=== PATIENT | female | born 1975 | race Caucasian/White ===

== ENCOUNTER 2020-05-27 09:42 | Outpatient (REF) | payer OTHER, SELFPAY ==
--- NOTE | 2020-05-27 | MM_ITS ---
EXAMINATION: MM SCREENING DIGITAL BREAST TOMOSYNTHESIS, BILATERAL CLINICAL INFORMATION: Screening. Asymptomatic. Prior benign left retroareolar biopsy 05/25/2013 (fragments of cyst wall and other benign findings). The lifetime risk of breast cancer based on the Tyrer-Cuzick Model is 17%. COMPARISON: Mammography: 11/21/2018, 06/07/2017, 05/11/2016 TECHNIQUE: Digital breast tomosynthesis is performed in both the craniocaudal and mediolateral oblique views along with computer-aided detection (CAD). Synthesized 2D images are generated from the tomosynthesis. Additional bilateral exaggerated CC views are provided. FINDINGS: The breasts are heterogeneously dense, which may obscure small masses (ACR BI-RADS breast composition Category c). Left breast has biopsy clip marker retroareolar region. There is no interval mass or architectural abnormality or developing density. There are fine calcifications anterior and anteroinferior left breast possibly increased from prior study. Patient will be recalled for additional imaging. Right breast has 0.9 cm circumscribed nodule mid outer quadrant 7 cm from nipple, likely a cyst. There is nodular asymmetry more anteriorly outer right breast, likely related to summation artifact of the inhomogeneous tissue. No abnormal calcifications. Patient will be recalled for additional imaging. MM/MM tomosynthesis screening BI IMPRESSION: 1. Left: Calcifications anterior breasts, possibly increased from prior study. 2. Right: Probable cyst mid upper outer quadrant 0.9 cm with some asymmetric tissue more anteriorly, likely summation artifact. ASSESSMENT: BI-RADS 0: Incomplete - Need Additional Imaging Evaluation RECOMMENDATION: 1. Left: Additional views of the left breast (magnification CC, magnification ML). 2. Right: Additional views upper outer right breast (3-D spot CC, 3-D spot MLO). Targeted ultrasound. 3. Radiology department staff will contact the patient for additional imaging. This patient's information was entered into a reminder system with a target due date for their next mammogram.
== END 2020-05-27 09:43 | disposition home or self-care (01) ==
LOC: HO.MAMMO 09:42
PROVIDERS: PCP Internal Medicine; Visit Provider Internal Medicine
DX: Z12.31 Encounter for screening mammogram for malignant neoplasm of breast (principal)
CPT/HCPCS: 77063; 77067

== ENCOUNTER 2020-06-24 12:30 | Outpatient (REF) | payer OTHER, SELFPAY ==
--- NOTE | 2020-06-24 12:35 | MM_ITS ---
EXAMINATION: MM DIAGNOSTIC DIGITAL BREAST TOMOSYNTHESIS, BILATERAL US DIAGNOSTIC ULTRASOUND BREAST, RIGHT CLINICAL INFORMATION: Recall from screening for calcifications anterior left breast. Recall right breast for smooth mass upper outer quadrant with adjacent asymmetric density, possibly summation artifact. TC score 14%. COMPARISON: Mammography: 05/27/2020, 11/21/2018 TECHNIQUE: Magnification views of the left breast are obtained in the CC and ML x2 projections. The right breast is imaged with digital breast tomosynthesis in spot CC and spot MLO views. 2D images are generated from the tomosynthesis. Ultrasound right breast is targeted to the upper outer quadrant. Grayscale imaging and color Doppler are performed without and with harmonics. FINDINGS: The breasts are heterogeneously dense, which may obscure small masses (ACR BI-RADS breast composition Category c). Additional magnification views left breast demonstrate a few loosely grouped fine calcifications lower outer left breast, questionably related to vascular calcification. Management plan is for short interval six-month follow-up to include magnification views. Additional views right breast show smooth mass upper outer quadrant measuring 0.9 cm. The asymmetric density anterior to the mass is no longer demonstrated suggesting summation artifact on prior imaging. Ultrasound upper outer right breast demonstrates a cyst with incompletely fine avascular internal septation and overall size 1.0 x 0.7 cm. There is no solid component. There is increased through-transmission of sound. There is no solid mass or architectural abnormality. Results are discussed with the patient at time of visit. MM/MM tomosynthesis diagnostic BI IMPRESSION: 1. Left: Probable benign loosely grouped calcifications lower outer left breast, questionably vascular. 2. Right: No persistent asymmetric density. Incidental cyst 1 cm upper outer quadrant. ASSESSMENT: BI-RADS 3: Probably Benign RECOMMENDATION: Diagnostic left mammography to include magnification views in 6 months. This patient's information was entered into a reminder system with a target due date for their next mammogram.
== END 2020-06-24 12:31 | disposition home or self-care (01) ==
LOC: HO.MAMMO 12:30
PROVIDERS: PCP Internal Medicine; Visit Provider Internal Medicine
DX: R92.1 Mammographic calcification found on diagnostic imaging of breast (principal); N64.89 Other specified disorders of breast
CPT/HCPCS: 76642; 77062; 77066

== ENCOUNTER → 2020-07-13 14:47 | Outpatient (BNVA) | payer OTHER, SELFPAY | PROVIDERS: PCP Internal Medicine; Referring Provider Internal Medicine; Visit Provider Obstetrics & Gynecology | DX: Z76.89 Persons encountering health services in other specified circumstances (principal) ==

== ENCOUNTER 2021-01-20 12:50 | Outpatient (REF) | payer OTHER, SELFPAY ==
--- NOTE | ~2021-01-20 | MM_ITS ---
EXAMINATION: MM DIAGNOSTIC DIGITAL BREAST TOMOSYNTHESIS, LEFT CLINICAL INFORMATION: Short interval six-month follow-up probable benign calcifications anterior left breast, possibly vascular. The lifetime risk of breast cancer based on the Tyrer-Cuzick Model is 13%. COMPARISON: Mammography: 06/24/2020, 05/27/2020 (BI-RADS 0), 11/21/2018 TECHNIQUE: Digital breast tomosynthesis is performed in both the craniocaudal and mediolateral oblique views along with computer-aided detection (CAD). Synthesized 2D images are generated from the tomosynthesis. Additional magnification CC and magnification ML views are obtained. FINDINGS: The breasts are heterogeneously dense, which may obscure small masses (ACR BI-RADS breast composition Category c). Breast tissue composition borders on average fibroglandular. Parenchymal pattern is similar to prior studies. There is no developing density or interval mass or architectural abnormality. Calcifications for follow-up anterior breast are stable. There is inferior anterior are possibly vascular. They will be reassessed again at time of annual bilateral mammography, due in 6 months. Results are provided to the patient at time of visit by the technologist. MM/MM tomosynthesis diagnostic LT IMPRESSION: Left breast anterior calcifications for follow-up are stable. ASSESSMENT: BI-RADS 3: Probably Benign RECOMMENDATION: Diagnostic mammography at time of annual bilateral exam, due in 6 months. This patient's information was entered into a reminder system with a target due date for their next mammogram.
== END 2021-01-20 12:51 | disposition home or self-care (01) ==
LOC: HO.MAMMO 12:50
PROVIDERS: PCP Internal Medicine; Visit Provider Internal Medicine
DX: R92.1 Mammographic calcification found on diagnostic imaging of breast (principal)
CPT/HCPCS: 77061; 77065

== ENCOUNTER 2021-06-16 11:34 | Outpatient (REF) | payer OTHER, SELFPAY ==
[2021-06-16 13:08] LABS: COVID-19 Test Negative (Negative)
== END 2021-06-16 11:35 | disposition home or self-care (01) ==
LOC: HO.LAB 11:34
PROVIDERS: Visit Provider Internal Medicine
DX: Z20.822 Contact with and (suspected) exposure to COVID-19 (principal)
CPT/HCPCS: 36415; 87635; C9803

== ENCOUNTER 2021-06-19 12:05 | Outpatient (REF) | payer OTHER, SELFPAY ==
[2021-06-19 12:47] LABS: Influenza A PCR NEGATIVE (Negative); Influenza B PCR NEGATIVE (Negative); Resp Syncy Virus RNA Qual PCR NEGATIVE (Negative); SARS COV2 PCR INHOUSE POSITIVE (Negative)
== END 2021-06-19 12:06 | disposition home or self-care (01) ==
LOC: HO.LNP 12:05
PROVIDERS: Visit Provider Physician Assistant
DX: J32.9 Chronic sinusitis, unspecified (principal); Z20.822 Contact with and (suspected) exposure to COVID-19
CPT/HCPCS: 0241U

== ENCOUNTER 2021-07-05 08:58 | Outpatient (REF) | payer OTHER, SELFPAY ==
--- NOTE | ~2021-07-05 | XR_ITS ---
EXAMINATION: XR CHEST CLINICAL INFORMATION: Covid infection COMPARISON: None TECHNIQUE: 2 views of the chest were obtained. FINDINGS: The cardiac and mediastinal contours are normal. The lungs are clear. There is no pleural effusion or pneumothorax. There are mild degenerative changes of the spine and curvature of the lower thoracic and upper lumbar spine to the left. XR/XR chest 2V IMPRESSION: No evidence for acute disease in the chest.
[2021-07-05 11:22] LABS: MANUAL DIFF FLAG NO
[2021-07-05 11:28] LABS: Basophils Percent Auto 0.4 % (0-2); Eosinophils Absolute Auto 0.1 X10*3/uL (0.0-0.4); Eosinophils Percent Auto 1.9 % (0-4); Hematocrit 42.3 % (37.0-47.0); Hemoglobin 14.1 g/dl (12.0-16.0); Imm Gran Abs Auto 0.01 X10*3/uL (0.00-0.03); Imm Gran Pct Auto 0.2 % (0.0-0.4); Lymphocytes Absolute Auto 1.6 X10*3/uL (1.2-4.9); Lymphocytes Percent Auto 34.3 % (20-40); Mean Corpuscular HGB Conc 33.3 g/dl (31.0-35.0); Mean Corpuscular Hemoglobin 30.7 pg (27.0-33.0); Mean Corpuscular Volume 92.2 fL (80.0-98.0); Monocytes Absolute Auto 0.5 X10*3/uL (0.1-1.2); Monocytes Percent Auto 11.2 % (2-11); Neutrophils Absolute Auto 2.4 x10*3/uL (2.0-8.3); Platelet Count 305 X10*3/uL (160-400); Red Blood Count 4.59 X10*6/uL (4.20-5.50); Red Cell Distribution Width 12.1 % (11.0-16.0); White Blood Count 4.7 X10*3/uL (4.8-10.8)
[2021-07-05 12:11] LABS: TSH reflex Free T4 1.62 uIU/mL (0.32-4.0); Vitamin D 25-OH Total 23.7 ng/mL (>30)
[2021-07-05 12:13] LABS: Alanine Aminotransferase 21 U/L (0-31); Anion Gap 11 (12-20); Aspartate Amino Transferase 18 U/L (5-31); Blood Urea Nitrogen 9 mg/dL (9-16); Calcium 9.3 mg/dL (8.4-10.2); Carbon Dioxide 25 mmol/L (22-29); Chloride 106 mmol/L (96-108); Cholesterol 223 mg/dL; Estimated Glomerular Filt Rate > 60; Glucose Fasting 95 mg/dL (60-99); HDL Cholesterol 48 mg/dL; LDL Cholesterol Calculated 154 mg/dl; Potassium 3.9 mmol/L (3.3-5.1); Sodium 138 mmol/L (135-145); Triglycerides 107 mg/dL
== END 2021-07-05 08:59 | disposition home or self-care (01) ==
LOC: HO.HMGCLDS 08:58
PROVIDERS: PCP Internal Medicine; Visit Provider Internal Medicine
DX: Z00.01 Encounter for general adult medical examination with abnormal findings (principal); K58.1 Irritable bowel syndrome with constipation; R05.8 Other specified cough; Z86.16 Personal history of COVID-19
CPT/HCPCS: 36415; 71046; 80048; 80061; 82306; 84443; 84450; 84460; 85025

== ENCOUNTER 2021-07-24 13:25 | Outpatient (REF) | payer OTHER, SELFPAY ==
--- NOTE | ~2021-07-24 | MM_ITS ---
EXAMINATION: MM DIAGNOSTIC DIGITAL BREAST TOMOSYNTHESIS, BILATERAL CLINICAL INFORMATION: Due for yearly. Also follow-up probable benign calcifications anterior left breast. The lifetime risk of breast cancer based on the Tyrer-Cuzick Model is 13%. COMPARISON: Mammography: 01/20/2021, 06/24/2020, 05/27/2020 (BI-RADS 0), 11/21/2018, 06/07/2017; targeted right breast ultrasound 06/24/2020. TECHNIQUE: Digital breast tomosynthesis is performed in both the craniocaudal and mediolateral oblique views along with computer-aided detection (CAD). Synthesized 2D images are generated from the tomosynthesis. Additional magnification left CC and magnification left ML views are obtained. FINDINGS: The breasts are heterogeneously dense, which may obscure small masses (ACR BI-RADS breast composition Category c). There is no interval mass or architectural abnormality. Small oval circumscribed cyst again seen right breast upper outer quadrant. There is biopsy clip marker anterior 3:00 left breast. A few fine punctate calcifications anterior left breast are stable. No increasing calcifications or pleomorphic types. They will be reassessed again at time of annual bilateral mammography, due in 12 months. The axilla and skin contours are unremarkable. Results are provided to the patient at time of visit by the technologist. MM/MM tomosynthesis diagnostic BI IMPRESSION: 1. No mammographic evidence of malignancy or significant change from prior studies. 2. Left breast calcifications for follow-up stable. ASSESSMENT: BI-RADS 3: Probably Benign RECOMMENDATION: Diagnostic mammography at time of next annual exam, due in 12 months. This patient's information was entered into a reminder system with a target due date for their next mammogram.
== END 2021-07-24 13:26 | disposition home or self-care (01) ==
LOC: HO.MAMMO 13:25
PROVIDERS: PCP Internal Medicine; Visit Provider Internal Medicine
DX: R92.1 Mammographic calcification found on diagnostic imaging of breast (principal)
CPT/HCPCS: 77062; 77066

== ENCOUNTER → 2021-09-13 08:30 | Outpatient (BNVA) | payer OTHER, SELFPAY | PROVIDERS: PCP Internal Medicine; Visit Provider Obstetrics & Gynecology | DX: Z13.89 Encounter for screening for other disorder (principal) ==

== ENCOUNTER → 2021-11-15 07:59 | Outpatient (BNVA) | payer OTHER, SELFPAY | PROVIDERS: PCP Internal Medicine; Referring Provider Internal Medicine; Visit Provider Physician Assistant | DX: Z12.11 Encounter for screening for malignant neoplasm of colon (principal); K58.1 Irritable bowel syndrome with constipation | CPT/HCPCS: 99202; 99212 ==

== ENCOUNTER 2022-03-19 09:23 | Day surgery (SDC) | payer OTHER, SELFPAY ==
--- NOTE | 2022-03-16 12:46 | HO.ANESPROP2 ---
Documented by User: Rosalie Saucedo NP 03/16/22 12:46 HPI - Anesthesia Eval Consult details Narrative: 46yo F for Colonoscopy [facility] Active Problems Active Problems: All Active Problems (Updated 12/12/21 @ 13:29 by Silvia Maxwell PA-C) Well woman exam (Acute) Encounter for screening colonoscopy (Acute) History of COVID-19 (Acute) Irritable bowel syndrome with constipation (Acute) Seasonal allergies (Acute) Past Medical History Medical History (Updated 12/12/21 @ 13:29 by Silvia Maxwell PA-C) History of COVID-19 Irritable bowel syndrome with constipation Seasonal allergies Wrist fracture, left Surgical History Surgical History (Updated 03/14/22 @ 13:30 by Jaelyn De RN) History of surgery on wrist Social History Social History Household Members: Spouse Housing: Apartment Patient Tobacco Use Status: Never used Tobacco Advance Directives: No Advance Directives Information Provided: Yes service: No Current occupational status: employed Gender identity: Female Meds Allergies Allergy/AdvReac Type Severity Reaction Status Date / Time amoxicillin [AMOXICILLIN] Allergy Unknown NAUSEA, Verified 03/19/22 09:45 nausea and vomiting Home Medications Medication Instructions Recorded Confirmed Last Taken Type fexofenadine 180 mg tablet 180 mg PO DAILY 07/05/21 03/14/22 Unknown History (Radha Allergy) magnesium 250 mg tablet 250 mg PO DAILY 07/05/21 03/14/22 Unknown History montelukast 10 mg tablet 10 mg PO DAILY 07/05/21 03/14/22 Unknown History hydrocortisone 2.5 % topical topical 11/15/21 12/12/21 Unknown History ointment Exam Exam Date and Time: March 16, 2022 1246 Assessment and Plan Assessment Anesthesia Assessment: Chart Reviewed Documented by User: Sofia Rosales MD 03/19/22 10:09 [facility] Past Medical History Medical History (Updated 12/12/21 @ 13:29 by Silvia Maxwell PA-C) History of COVID-19 Irritable bowel syndrome with constipation Seasonal allergies Wrist fracture, left Family History Family history of problems with anesthesia: No Surgical History Surgical History (Updated 03/14/22 @ 13:30 by Jaelyn De RN) History of surgery on wrist History of Problems with Anesthesia: No Social History Social History Household Members: Spouse Housing: Apartment Patient Tobacco Use Status: Never used Tobacco Advance Directives: No Advance Directives Information Provided: Yes service: No Current occupational status: employed Gender identity: Female Meds Allergies Allergy/AdvReac Type Severity Reaction Status Date / Time amoxicillin [AMOXICILLIN] Allergy Unknown NAUSEA, Verified 03/19/22 09:45 nausea and vomiting Home Medications Medication Instructions Recorded Confirmed Last Taken Type fexofenadine 180 mg tablet 180 mg PO DAILY 07/05/21 03/14/22 Unknown History (Radha Allergy) magnesium 250 mg tablet 250 mg PO DAILY 07/05/21 03/14/22 Unknown History montelukast 10 mg tablet 10 mg PO DAILY 07/05/21 03/14/22 Unknown History hydrocortisone 2.5 % topical topical 11/15/21 12/12/21 Unknown History ointment Exam Airway Mallampati Class: II TM Dist: >3cm Neck ROM: Full Heart: rrr Lungs: cta Assessment and Plan Assessment Anesthesia Assessment: Anesthesia Plan Discussed and Chart Reviewed Final Anesthetic Review Family History of Problems with Anesthesia: No History of Problems with Anesthesia: No NPO: Yes ASA Class: II Final Preanesthetic Review: No Changes in Pt Med Stat, Meds/Allgs Chart Reviewed and Consent Obtained/Reviewed Patient Risk: Intermediate Procedure Risk: Intermediate Anesthetic Plan Anesthetic Plan: MAC: Disposition: Standard PACU
[2022-03-19 09:36] VITALS: BMI 26.5
[2022-03-19 09:46] VITALS: BP 114/72; PULSE 83; RESP 15; TEMP 36.9; O2SAT 98
[2022-03-19 09:48] LABS: UPreg QC Valid YES; Urine Pregnancy NEGATIVE (NEGATIVE)
[2022-03-19] MEDS: Lactated Ringers 1,000 ML 100 ML IVCONT (09:57)
--- NOTE | 2022-03-19 10:09 | MHC.SHP ---
Pre-Procedural Eval Section A Date of Service: 03/19/22 The patient is an INPATIENT: No The History & Physical has been completed within 30 days and I have reviewed it.: No Section B Chief Complaint: screening Details of Present Illness: Colon cancer screening, IBS with constipation Relevant Social History: None Present Medications: see Short Stay Collaborative assessment Medical History: Significant History (IBS with constipation, seasonal allergies) History of Previous Operations: Relevant previous surgery/procedure and date(s) (History of surgery on wrist) Allergies: Allergies Allergy/AdvReac Type Severity Reaction Status Date / Time amoxicillin [AMOXICILLIN] Allergy Unknown NAUSEA, Verified 03/19/22 09:45 nausea and vomiting Review of Systems Sugical H&P ROS: Negative: Constitution, Cardiovascular and Respiratory and Yes, Specify: Gastrointestinal (IBS with constipation) Exam Surgical H&P Exam: Normal: Heart, Normal: Lungs, Normal: Extremities and Normal: Abdomen Plan Diagnosis/Plan: Unchanged I have reviewed the history and physical and performed a pertinent physical examination on my patient. No changes have occurred unless specified.
--- NOTE | 2022-03-19 10:16 | PM.OP ---
Brief Operative Note Date of Service: 03/19/22 Pre-op diagnosis: Colon cancer screening, IBS with constipation Post-op diagnosis: other (Colon polyp, hemorrhoids) Procedure: COLONOSCOPY TILL CECUM WITH BIOPSIES Consent: Indications for the procedure and potential complications of bleeding, perforation, reaction to medications and missed diagnosis were discussed with the patient and informed consent was obtained. Instrument: Olympus PCF H 190 L variable stiffness pediatric colonoscope Monitoring: Vital signs and clinical assessment, intermittent blood pressure monitoring, continuous EKG monitoring, Pulse oximetry and Carbon Dioxide monitoring were done throughout the procedure. Colon withdrawl time was 18 minutes. Procedure: The patient was placed in the left lateral decubitis position and pre-procedure medications were administered. After a digital rectal examination of the ano-rectum, the video colonoscope was inserted into the rectum and advanced through the colon to the cecum. The colonoscope was slowly withdrawn in a retrograde panoramic fashion and the colon mucosa was carefully examined including a retroflexed view of the rectum. Findings and interventions are described below. Procedure Difficulty: Without difficulty Findings: Terminal Ileum: Not evaluated Cecum: Normal Ascending Colon: Normal Transverse Colon: Normal Descending Colon: Normal Sigmoid Colon: A 3-4 mm diminutive appearing polyp removed with a cold bx Rectum: Normal Ano-rectum: Small internal hemorrhoids Colon preparation: Good Impression and Post Procedure Diagnosis: Colonoscopy Findings: One small diminutive appear polyp removed Small hemorrhoids on retroflexed exam. Plan: Await pathology results Patient has an appointment on 04/02/22 in the GI Clinic with ROSE MARY Schaeffer. Repeat Colonoscopy interval based on path results - in 5 years if polyps are adenomatous and 10 years if polyps are hyperplastic. Above findings were reviewed with the patient and colon polyps handout was given in the discharge area Surgeon: Beck Matias MD Anesthesia: MAC Was an Bilingual Nanny used for this Procedure?: Yes Bilingual Nanny: Kalyan Roth Estimated blood loss (mL): 0 Pathology: other (A: SIGMOID BX R/O POLYP) Condition: stable Disposition: PACU
[2022-03-19 10:47] VITALS: BP 130/84; PULSE 86; RESP 16; TEMP 36.2; O2SAT 99
--- NOTE | 2022-03-19 10:50 | P.OP_ITS ---
Operative Note Operative Note Date of Service: 03/19/22 Narrative: Pre-op diagnosis: Colon cancer screening, IBS with constipation Post-op diagnosis:?other (Colon polyp, hemorrhoids) Procedure: COLONOSCOPY TILL CECUM WITH BIOPSIES Consent: Indications for the procedure and potential complications of bleeding, perforation, reaction to medications and missed diagnosis were discussed with the patient and informed consent was obtained. Instrument: Olympus PCF H 190 L variable stiffness pediatric colonoscope Monitoring: Vital signs and clinical assessment, intermittent blood pressure monitoring, continuous EKG monitoring, Pulse oximetry and Carbon Dioxide monitoring were done throughout the procedure. Colon withdrawl time was 18 minutes. Procedure: The patient was placed in the left lateral decubitis position and pre-procedure medications were administered. After a digital rectal examination of the ano-rectum, the video colonoscope was inserted into the rectum and advanced through the colon to the cecum. The colonoscope was slowly withdrawn in a retrograde panoramic fashion and the colon mucosa was carefully examined including a retroflexed view of the rectum. Findings and interventions are described below. Procedure Difficulty: Without difficulty Findings: Terminal Ileum: Not evaluated Cecum:? Normal Ascending Colon:? Normal Transverse Colon:? Normal Descending Colon:? Normal Sigmoid Colon:? A 3-4 mm diminutive appearing polyp removed with a cold bx Rectum:? Normal Ano-rectum:? Small internal hemorrhoids Colon preparation:? Good? Impression and Post Procedure Diagnosis: Colonoscopy Findings: One small diminutive appear polyp removed Small hemorrhoids on retroflexed exam. Plan: Await pathology results Patient has an appointment on 04/02/22 in the GI Clinic with ROSE MARY Schaeffer. Repeat Colonoscopy interval based on path results - in 5 years if polyps are adenomatous and 10 years if polyps are hyperplastic. Above findings were reviewed with the patient and colon polyps handout was given in the discharge area Surgeon: Beck Matias MD Anesthesia:?MAC Was an Software Licensing Specialist used for this Procedure?:?Yes Software Licensing Specialist:?Kalyan Roth Estimated blood loss (mL):?0 Pathology:?other (A: SIGMOID BX R/O POLYP) Condition:?stable Disposition:?PACU
[2022-03-19 11:02] VITALS: BP 128/84; PULSE 88; RESP 18; TEMP 36.2; O2SAT 100
== END 2022-03-19 12:00 | disposition home or self-care (01) ==
PROVIDERS: Nurse Practitioner; PCP Internal Medicine; Visit Provider Internal Medicine Gastroenterology
PROC: 0DJD8ZZ Inspection of Lower Intestinal Tract, Via Natural or Artificial Opening Endoscopic (ICD-10-PCS; CPT 45378; principal; 2022-03-19 11:50)
DX: Z12.11 Encounter for screening for malignant neoplasm of colon (principal); K63.5 Polyp of colon; K57.30 Diverticulosis of large intestine without perforation or abscess without bleeding; K64.8 Other hemorrhoids; K58.1 Irritable bowel syndrome with constipation; Z79.899 Other long term (current) drug therapy; Z88.1 Allergy status to other antibiotic agents; Z86.16 Personal history of COVID-19
CPT/HCPCS: 45380; 81025; 88305

== ENCOUNTER 2022-06-26 07:58 | Outpatient (REF) | payer OTHER, SELFPAY ==
[2022-06-27 10:00] LABS: BV Int Neg Control Negative (Negative); BV Int Pos Control Positive (Positive)
[2022-06-27 16:57] LABS: HPV mRNA E6/E7 rflx Not Detected (Not Detected)
== END 2022-06-26 07:59 | disposition home or self-care (01) ==
LOC: HO.LNP 07:58
PROVIDERS: PCP Internal Medicine; Visit Provider Obstetrics & Gynecology
DX: R31.29 Other microscopic hematuria (principal); N93.9 Abnormal uterine and vaginal bleeding, unspecified; N39.41 Urge incontinence; N92.6 Irregular menstruation, unspecified; R23.2 Flushing; N81.4 Uterovaginal prolapse, unspecified
CPT/HCPCS: 87086; 87480; 87510; 87624; 87660; 88142; 99212

== ENCOUNTER 2022-06-27 09:04 | Outpatient (REF) | payer OTHER, SELFPAY ==
[2022-06-27 11:53] LABS: Hematocrit 45.5 % (37.0-47.0); Hemoglobin 15.2 g/dl (12.0-16.0); Mean Corpuscular HGB Conc 33.4 g/dl (31.0-35.0); Mean Corpuscular Volume 92.7 fL (80.0-98.0); Mean Platelet Volume 11.9 fL (9.4-12.3); Platelet Count 280 X10*3/uL (160-400); Red Blood Count 4.91 X10*6/uL (4.20-5.50); Red Cell Distribution Width 12.1 % (11.0-16.0); White Blood Count 4.8 X10*3/uL (4.8-10.8)
[2022-06-27 12:36] LABS: HCG Quantitative < 2 mIU/mL; TSH reflex Free T4 1.68 uIU/mL (0.32-4.0)
[2022-06-28 21:52] LABS: Lutenizing Hormone 15.1 mIU/mL
== END 2022-06-27 09:05 | disposition home or self-care (01) ==
LOC: HO.HMGCLDS 09:04
PROVIDERS: PCP Internal Medicine; Visit Provider Obstetrics & Gynecology
DX: N93.9 Abnormal uterine and vaginal bleeding, unspecified (principal)
CPT/HCPCS: 36415; 83001; 83002; 84443; 84702; 85027

== ENCOUNTER 2022-07-04 13:34 | Outpatient (REF) | payer OTHER, SELFPAY ==
--- NOTE | ~2022-07-04 | US_ITS ---
EXAMINATION: US PELVIS CLINICAL INFORMATION: Abnormal uterine bleeding COMPARISON: Pelvic ultrasound 10/28/2019 TECHNIQUE: Transabdominal and endovaginal imaging was performed. FINDINGS: The uterus is of normal size and echogenicity measuring 8.4 x 4.6 x 6.2 cm. A regular homogeneous endometrium is identified measuring 1.0 cm. A 1.3 cm subserosal myoma, in the anterior body. Nabothian cysts in the cervix. Both ovaries are of normal size and echogenicity. The right measures 2.2 x 1.7 x 2.4 cm for a volume of 4.5 mL. The left measures 2.1 x 1.9 x 2.1 cm for a volume of 4.3 mL. Physiologic involuting left hemorrhagic corpus luteum. There is no pelvic free fluid. US/US pelvic and transvaginal IMPRESSION: The endometrium measures 1 cm in thickness which is within normal limits. A 1.3 cm subserosal myoma in the anterior body of the uterus, new from prior.
== END 2022-07-04 13:35 | disposition home or self-care (01) ==
LOC: HO.HMGCX 13:34
PROVIDERS: PCP Internal Medicine; Visit Provider Obstetrics & Gynecology
DX: N93.9 Abnormal uterine and vaginal bleeding, unspecified (principal)
CPT/HCPCS: 76830; 76856

== ENCOUNTER 2022-07-11 08:28 | Outpatient (REF) | payer OTHER, SELFPAY | END 2022-07-11 08:29 | disposition home or self-care (01) | LOC: HO.LNP 08:28 | PROVIDERS: PCP Internal Medicine; Visit Provider Obstetrics & Gynecology | DX: N93.9 Abnormal uterine and vaginal bleeding, unspecified (principal); R31.29 Other microscopic hematuria | CPT/HCPCS: 58100; 88305; 99212 ==

== ENCOUNTER → 2022-07-23 08:17 | Outpatient (BNVA) | payer OTHER, SELFPAY | PROVIDERS: PCP Internal Medicine; Visit Provider Obstetrics & Gynecology | DX: N93.9 Abnormal uterine and vaginal bleeding, unspecified (principal); D21.9 Benign neoplasm of connective and other soft tissue, unspecified | CPT/HCPCS: 99212 ==

== ENCOUNTER 2022-07-25 13:25 | Outpatient (REF) | payer OTHER, SELFPAY ==
--- NOTE | ~2022-07-25 | MM_ITS ---
EXAMINATION: MM DIAGNOSTIC DIGITAL BREAST TOMOSYNTHESIS, LEFT CLINICAL INFORMATION: Bilateral screening mammography and diagnostic left breast study with magnification views for calcifications. The lifetime risk of breast cancer based on the Tyrer-Cuzick Model is 13.3%. COMPARISON: Mammography: 07/24/2021 and studies dating back to 12/04/2013. TECHNIQUE: Digital breast tomosynthesis is performed in both the craniocaudal and mediolateral oblique views along with computer-aided detection (CAD). Synthesized 2D images are generated from the tomosynthesis. Additional spot magnification views of the left breast in craniocaudal and 90-degree mediolateral views performed. FINDINGS: The breasts are heterogeneously dense, which may obscure small masses (ACR BI-RADS breast composition Category c). No new abnormal dominant mass or more suspicious grouping of microcalcifications is identified. No aggressive change within the left breast calcifications inferior aspect. Recommend return to routine screening mammography. Results are provided to the patient at time of visit by the technologist. MM/MM tomosynthesis diagnostic BI IMPRESSION: There are no significant changes from prior study. ASSESSMENT: BI-RADS 2: Benign. RECOMMENDATION: Routine annual mammography screening. This patient's information was entered into a reminder system with a target due date for their next mammogram.
== END 2022-07-25 13:26 | disposition home or self-care (01) ==
LOC: HO.MAMMO 13:25
PROVIDERS: PCP Internal Medicine; Visit Provider Internal Medicine
DX: R92.1 Mammographic calcification found on diagnostic imaging of breast (principal)
CPT/HCPCS: 77062; 77066

== ENCOUNTER 2022-11-14 07:50 | Outpatient (AMB) | payer OTHER, SELFPAY ==
--- NOTE | 2022-11-14 08:00 | MHC.PC.OV ---
Vital Signs 11/14/22 08:01 Height 5 ft 8.5 in Weight 183 lb BMI 27.4 BP 122/70 Blood Pressure Location Rt brachial Position Sitting Pulse 69 Pulse Source Pulse Oximeter Pulse Oximetry (%) 97 Oxygen Delivery Method Room Air Intake Visit Reasons: ANNUAL PE Intake Note: Pt is here today for her PE Is last menstrual period known: Yes Last menstrual period: 11/03/22 Allergies amoxicillin [AMOXICILLIN] Allergy (Unknown, Verified 02/15/23 10:53) NAUSEA, nausea and vomiting Medication List - Last Reconciled 11/14/22 by Naz Martinez MD fexofenadine ([facility]) 180 mg PO DAILY hydrocortisone 2.5% topical magnesium 250 mg PO DAILY Tobacco use date assessed: 11/14/22 HPI ANNUAL PE HPI Details 46-year-old lady here today for physical exam. She is up-to-date with her screening colonoscopy, goes to Dr. Mckeon for routine Pap and pelvic exam, and is up-to-date with her mammogram. She is currently being followed for mild cystocele and uterine prolapse by her OBGYN. 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 Currently being followed by GI clinic for her IBS with constipation, maintain and high-fiber diet. Goes to Dr. Richardson for skin cancer screening. She has history of vitamin-D deficiency currently not taking any vitamin-D supplements at present time, and has mild elevation in her LDL cholesterol on last year's check.. Currently being seen by an emotionally impaired teacher for seasonal allergic rhinitis, currently on Astelin nasal spray but has stopped getting immunotherapy, was not working per patient. Goes to [facility] for her routine eye exam, has myopia. Has had 2 COVID vaccine but does not want to get the booster nor does she want to get flu shots, currently up-to-date with her Tdap.. [facility] Medical History Vitamin D deficiency History of COVID-19 Irritable bowel syndrome with constipation Wrist fracture, left Seasonal allergies Surgical History History of surgery on wrist Social History Household Members: Spouse Housing: Apartment Patient Tobacco Use Status: Never used Tobacco e-Cigarette/Vaping Use: Never Used service: No Current occupational status: employed Gender identity: Female Cognitive needs: No Hearing needs: No Vision needs: Yes Female Reproductive History Menstrual Age of Menarche: 11 Date of last menstrual period: 11/03/22 Questionnaire PHQ-9 Over the last 2 weeks, how often have you been bothered by any of the following problems? 1. Little interest or pleasure in doing things: several days 2. Feeling down, depressed, or hopeless: several days 3. Trouble falling or staying asleep, or sleeping too much: not at all 4. Feeling tired or having little energy: more than half the days 5. Poor appetite or overeating: not at all 6. Feeling bad about yourself - or that you are a failure or have let yourself or your family down: several days 7. Trouble concentrating on things, such as reading the newspaper or watching television: not at all 8. Moving or speaking so slowly that other people could have noticed. Or the opposite - being so fidgety or restless that you have been moving around a lot more than usual: not at all 9. Thoughts that you would be better off or of hurting yourself in some way: not at all Total score: 5 Depression Screening Interpretation: Negative (Patient starting perimenopause attributes all above to it, not depressed) 02035 - PHQ-9 Billing: Yes Source: Developed by Drs. Patrick Moody, Abby Reyes, Gibson Peck and colleagues, with an educational deepti from [employer]. Thrive Questionnaire Date Thrive assessed: 11/14/22 I am a: Patient What is your living situation today?: I have a steady place to live Within the past 12 months, did the food you bought not last and you didn't have the money to get more?: Never true Within the past 12 months, did you worry whether your food would run out before you got money to buy more?: Never true Do you have trouble paying for medicines?: No Do you have trouble getting transportation to medical appointments?: No Do you have trouble paying your heating and electricity bill?: No Do you have trouble taking care of your child, family member or friend?: No Do you have trouble with day-to-day activities such as bathing, preparing meals, shopping, managing finances, etc.?: No Are you currently unemployed and looking for a job?: No Are you interested in more education?: No AUDIT C Alcohol Use Questionnaire (AUDIT-C) 1. How often do you have a drink containing alcohol?: Never Total Score: 0 GARY-7 AMB Questionnaire GARY-7 Date GARY - 7 assessed: 11/14/22 Feeling nervous, anxious, or on edge: 0 = Not at all Not being able to stop or control worryin = Not at all Worrying too much about different things: 0 = Not at all Trouble relaxin = Not at all Being so restless that it is hard to sit still: 0 = Not at all Becoming easily annoyed or irritable: 1 = Several days Feeling afraid as if something awful might happen: 0 = Not at all Total GARY-7 score (0-4 normal; 5-9 mild; 10-14 moderate; 15-21 severe): 1 Source: Developed by Drs. Patrick Moody, Abby Reyes, Gibson Peck and colleagues, with an educational deepti from [employer]. GARY-7 Assessment Billing GARY-7 Assessment Tool: GARY-7 Assessment 98968 Review of Systems Const Denies body aches, Denies fatigue and Denies headache(s) Eyes Details: Gets routine eye exam from [facility] Denies change in vision and Denies itchy eyes ENT Reports Normal hearing present and Denies headache(s) Card Denies chest pain, Denies lightheadedness, Denies palpitations and Denies dyspnea Resp Denies chest congestion, Denies cough, Denies dyspnea and Denies wheezing GI Denies abdominal pain, Denies change in bowel habits and Denies heartburn Denies urinary frequency, Denies dysuria and Denies urinary urgency Musc Reports no additional complaints Skin/Breast Denies lesions and Denies rash Neuro Reports Normal hearing present, Denies headache(s) and Denies Sensory deficit (Neuro) Psych Reports no additional complaints Endo Denies fatigue, Denies polydipsia, Denies polyuria and Denies palpitations Mohan/Lymph Denies easy bruising Aller/Immun Denies itchy eyes, Denies seasonal rhinorrhea and Denies wheezing Physical exam (Primary Care) Vital Signs: Last Vital Signs Pulse 69 11/14/22 08:01 BP 122/70 11/14/22 08:01 Pulse Ox 97 11/14/22 08:01 Oxygen Delivery Method Room Air 11/14/22 08:01 BMI result Body Mass Index 27.4 Tobacco/Smoking Status: Tobacco use Status Tobacco use date assessed 11/14/22 11/14/22 08:03 Patient Tobacco Use Status Never used Tobacco 11/14/22 08:00 e-Cigarette/Vaping Use Never Used 11/14/22 08:03 PHQ-9: PHQ-9 Score PHQ-9: Total score 5 11/14/22 08:57 Depression Screening Interpretation: Negative (Patient starting perimenopause attributes all above to it, not depressed) Thrive Assessment: Date of Thrive Assessment Date Thrive assessed 11/14/22 11/14/22 08:11 Const General: cooperative, healthy appearing, no acute distress and alert Orientation/consciousness: patient oriented x3 HENMT Head: Yes normocephalic and Yes atraumatic Ears: external ears normal, TM's normal bilaterally and EAC's normal General nose exam: Normal external nose present and No nasal discharge present Face and sinus: Yes normal facial exam, Yes sinuses nontender and Yes face symmetric Mouth: Normal oral and palatal mucosa present and moist mucous membranes Eyes Conjunctivae: conjunctivae normal Sclerae: sclerae normal Pupils: Equal, round and reactive pupils present EOM: EOMs intact bilaterally Neck Neck: Yes full ROM and Yes no lymphadenopathy Thyroid: Thyroid normal Chest Chest palpation & inspection: normal inspection of the chest Breast/axilla palpation: normal palpation of the breasts Resp Effort & Inspection: normal respiratory effort and able to speak in complete sentences Auscultation: clear to auscultation bilaterally Cardio Jugular venous distension: no JVD Rate: regular rate Rhythm: regular rhythm Heart sounds: S1 normal heart sound present and S2 normal heart sound present GI Inspection: Yes normal to inspection Palpation (GI): Soft to palpation, nontender, no guarding and no masses Auscultation: normal bowel sounds Back/Spine/Pelvis Back: No back tenderness Skin General skin exam: no rashes or lesions noted Neuro General: patient oriented x3, gait normal, moves all extremities, no focal motor deficits and CN's II-XI intact bilaterally Cranial nerves: Yes Equal, round and reactive pupils present and Yes Normal hearing present Cognition (Neuro): normal cognition Gait exam (Neuro): Normal gait present Motor exam (neuro): 5/5 motor strength present throughout Sensory Exam: No Sensory deficit (Neuro) Extrem General: Yes normal to inspection, Yes full ROM, Yes no pedal edema and Yes normal gait Psych Appearance: grossly normal and well kempt Mental Status: mental status grossly normal Speech and movement: Normal speech and movement present Affect: normal affect Attitude: cooperative Thought process: Normal thought process present Thought content: Normal thought content present Assessment and Plan Assessment & Plan (1) Annual visit for general adult medical examination with abnormal findings: Code(s): Z00. - Encounter for general adult medical examination with abnormal findings Plan: Will check appropriate labs. Continue dental visit every 6 months and regular eye exams, at least every 2 years. Take adequate calcium in diet and vitamin-D 3 at 2000 IU per cap once a day, in addition to weight-bearing exercises to help maintain good muscle tone and weight control. Instructed to do self-breast exam, and get yearly mammogram, currently sees [facility] for her routine Pap and pelvic exam. Up-to-date with her screening colonoscopy. Has had 2 COVID vaccines but does not want to get the booster nor does she want to get flu vaccine, up-to-date with Tdap (2) Irritable bowel syndrome with constipation: Code(s): K58.1 - Irritable bowel syndrome with constipation Plan: Followed by GI clinic, maintained on a high-fiber diet (3) Seasonal allergies: Code(s): J30.2 - Other seasonal allergic rhinitis Plan: Currently taking fexofenadine 180 mg once a day as needed (4) Perimenopause: Code(s): N95.1 - Menopausal and female climacteric states Plan: Followed by OBGYN Orders: Orders Alanine Aminotransferase 11/14/22 K58.1 - Irritable bowel syndrome with constipation, J30.2 - Other seasonal allergic rhinitis, Z00. - Encounter for general adult medical examination with abnormal findings, N95.1 - Menopausal and female climacteric states, E55.9 - Vitamin D deficiency, unspecified Aspartate Amino Transferase 11/14/22 K58.1 - Irritable bowel syndrome with constipation, J30.2 - Other seasonal allergic rhinitis, Z00.01 - Encounter for general adult medical examination with abnormal findings, N95.1 - Menopausal and female climacteric states, E55.9 - Vitamin D deficiency, unspecified Basic Metabolic Panel Fasting 11/14/22 K58.1 - Irritable bowel syndrome with constipation, J30.2 - Other seasonal allergic rhinitis, Z00.01 - Encounter for general adult medical examination with abnormal findings, N95.1 - Menopausal and female climacteric states, E55.9 - Vitamin D deficiency, unspecified Vitamin D 25-OH Total 11/14/22 K58.1 - Irritable bowel syndrome with constipation, J30.2 - Other seasonal allergic rhinitis, Z00.01 - Encounter for general adult medical examination with abnormal findings, N95.1 - Menopausal and female climacteric states, E55.9 - Vitamin D deficiency, unspecified Lipid Panel 11/14/22 K58.1 - Irritable bowel syndrome with constipation, J30.2 - Other seasonal allergic rhinitis, Z00.01 - Encounter for general adult medical examination with abnormal findings, N95.1 - Menopausal and female climacteric states, E55.9 - Vitamin D deficiency, unspecified TSH reflex Free T4 11/14/22 K58.1 - Irritable bowel syndrome with constipation, J30.2 - Other seasonal allergic rhinitis, Z00.01 - Encounter for general adult medical examination with abnormal findings, N95.1 - Menopausal and female climacteric states, E55.9 - Vitamin D deficiency, unspecified Coding Level of Care Code Est Pt Prev Care 40-64y(65570) Diagnoses Annual visit for general adult medical examination with abnormal findings Z00.01 Irritable bowel syndrome with constipation K58.1 Seasonal allergies J30.2 Perimenopause N95.1 Additional Codes GARY-7 Assessment Billing - GARY-7 Assessment Tool: GARY-7 Assessment [id number] ([id number])
[2022-11-14 08:01] VITALS: BP 122/70; PULSE 69; O2SAT 97; BMI 27.4
== END 2022-11-14 09:24 | disposition home or self-care (01) ==
LOC: HO.HMGC 07:50
PROVIDERS: PCP Internal Medicine; Visit Provider Internal Medicine
DX: Z00.01 Encounter for general adult medical examination with abnormal findings (principal); K58.1 Irritable bowel syndrome with constipation; J30.2 Other seasonal allergic rhinitis; N95.1 Menopausal and female climacteric states
CPT/HCPCS: 99499

== ENCOUNTER 2022-11-14 08:54 | Outpatient (REF) | payer OTHER, SELFPAY ==
[2022-11-14 11:49] LABS: Alanine Aminotransferase 14 U/L (0-31); Anion Gap 12 (12-20); Aspartate Amino Transferase 16 U/L (5-31); Blood Urea Nitrogen 12 mg/dL (9-16); Calcium 9.7 mg/dL (8.4-10.2); Carbon Dioxide 25 mmol/L (22-29); Chloride 106 mmol/L (96-108); Cholesterol 214 mg/dL; Estimated Glomerular Filt Rate > 60; Glucose Fasting 95 mg/dL (60-99); HDL Cholesterol 45 mg/dL; LDL Cholesterol Calculated 148 mg/dl; Potassium 4.1 mmol/L (3.3-5.1); Sodium 139 mmol/L (135-145); Triglycerides 108 mg/dL
[2022-11-14 12:08] LABS: TSH reflex Free T4 1.89 uIU/mL (0.32-4.0); Vitamin D 25-OH Total 29.1 ng/mL (>30)
== END 2022-11-14 08:55 | disposition home or self-care (01) ==
LOC: HO.HMGCLDS 08:54
PROVIDERS: PCP Internal Medicine; Visit Provider Internal Medicine
DX: Z00.01 Encounter for general adult medical examination with abnormal findings (principal); E55.9 Vitamin D deficiency, unspecified; J30.2 Other seasonal allergic rhinitis; K58.1 Irritable bowel syndrome with constipation; N95.1 Menopausal and female climacteric states
CPT/HCPCS: 36415; 80048; 80061; 82306; 84443; 84450; 84460

== ENCOUNTER 2023-02-15 09:29 | Outpatient (AMB) | payer OTHER, SELFPAY ==
--- NOTE | 2023-02-15 10:17 | AM.OFFWIN_ITS ---
Intake Vital Signs 02/15/23 10:22 Weight 185 lb BP 110/68 Blood Pressure Location Rt brachial Position Sitting Pulse 1 L Pulse Source Pulse Oximeter Temp 97.6 F Temp Source Temporal Artery Scan Pulse Oximetry (%) 97 Oxygen Delivery Method Room Air Intake Visit Reasons: EP, cough, chest congestion ([phone]) Intake Note: Patient here because she had covid about 1 month ago and still expericiening chest congestion, cough and fatigued. Patient Tobacco Use Status: Never used Tobacco Allergies amoxicillin [AMOXICILLIN] Allergy (Unknown, Verified 02/15/23 10:53) NAUSEA, nausea and vomiting Medication List - Last Reconciled 02/15/23 by Konrad Guerin MD fexofenadine ([facility]) 180 mg PO DAILY hydrocortisone 2.5% topical magnesium 250 mg PO DAILY Do you need a note to return to daycare/school/sports/work: No HPI EP, cough, chest congestion ([phone]) HPI Details 47-year-old female presents to the office for a sick visit. Patient tested positive for COVID on January. Subsequently she has been having symptoms of shortness of breath and wheezing. Feeling tired and fatigued. [facility] Medical History History of COVID-19 Irritable bowel syndrome with constipation Seasonal allergies Vitamin D deficiency Wrist fracture, left Surgical History History of surgery on wrist Social History Household Members: Spouse Housing: Apartment Patient Tobacco Use Status: Never used Tobacco e-Cigarette/Vaping Use: Never Used service: No Current occupational status: employed Gender identity: Female Cognitive needs: No Hearing needs: No Vision needs: Yes Female Reproductive History Menstrual Age of Menarche: 11 Physical Exam Vital Signs: Last Vital Signs Temp 97.6 F 02/15/23 10:22 Pulse 1 L 02/15/23 10:22 BP 110/68 02/15/23 10:22 Pulse Ox 97 02/15/23 10:22 Oxygen Delivery Method Room Air 02/15/23 10:22 Const General: cooperative and healthy appearing Nutritional Appearance: well nourished Orientation/consciousness: patient oriented x3 Limitations: no limitations HEENT Head: Yes normal to inspection Eyes General: appearance normal, both eyes and all related structures Neck Neck: Yes normal visual inspection Chest Chest palpation & inspection: normal palpation of entire chest wall Resp Other: Scattered wheeze bilaterally Effort & Inspection: normal respiratory effort Neuro General: patient oriented x3 Assessment & Plan Assessment & Plan (1) Upper respiratory tract infection: Code(s): J06.9 - Acute upper respiratory infection, unspecified Plan: No antibiotics called in. Prednisone and albuterol called in. Coding Level of Care Code Est Pt Level 3 (06073) Diagnoses Upper respiratory tract infection J06.9
[2023-02-15 10:22] VITALS: BP 110/68; PULSE 1; TEMP 36.4; O2SAT 97
== END 2023-02-15 11:20 | disposition home or self-care (01) ==
PROVIDERS: PCP Internal Medicine; Visit Provider Internal Medicine
DX: J06.9 Acute upper respiratory infection, unspecified (principal)
CPT/HCPCS: 99213

== ENCOUNTER 2023-07-29 13:01 | Outpatient (REF) | payer OTHER, SELFPAY ==
--- NOTE | ~2023-07-29 | MM_ITS ---
EXAMINATION: MM SCREENING DIGITAL BREAST TOMOSYNTHESIS, BILATERAL CLINICAL INFORMATION: Screening. Asymptomatic. COMPARISON: Mammography: This study is compared with prior exams dating back to 2019. TECHNIQUE: Digital breast tomosynthesis is performed in both the craniocaudal and mediolateral oblique views along with computer-aided detection (CAD). Synthesized 2D images are generated from the tomosynthesis. FINDINGS: The breasts are heterogeneously dense, which may obscure small masses (ACR BI-RADS breast composition Category c). In the deep third of the upper outer quadrant of the right breast, there is a focal asymmetry which warrants additional mammographic and targeted sonographic evaluation. In the same location, faint apparent calcifications warrant additional mammographic imaging with magnification. In the left breast, there are no significant masses, abnormal calcifications, or other abnormalities. MM/MM tomosynthesis screening BI IMPRESSION: Focal asymmetry of the right breast warrants additional mammographic and targeted sonographic evaluation. In the same location, calcifications also warrant additional mammographic imaging with magnification. No mammographic signs of malignancy left breast. ASSESSMENT: BI-RADS BI-RADS 0 - Incomplete: Needs additional Imaging. RECOMMENDATION: 1. Additional views of the right breast. 2. Targeted ultrasound if warranted after review of the additional views. 3. Radiology department staff will contact the patient for additional imaging. Additional Imaging required This examination should not preclude the clinical evaluation of a suspicious palpable abnormality. This patient's information was entered into a reminder system with a target due date for their next mammogram.
== END 2023-07-29 13:02 | disposition home or self-care (01) ==
LOC: HO.MAMMO 13:01
PROVIDERS: PCP Internal Medicine; Visit Provider Internal Medicine
DX: Z12.31 Encounter for screening mammogram for malignant neoplasm of breast (principal)
CPT/HCPCS: 77063; 77067

== ENCOUNTER → 2023-07-29 13:15 | Outpatient (BNV) | payer OTHER, SELFPAY | PROVIDERS: PCP Internal Medicine; Visit Provider Radiology Diagnostic Radiology | DX: Z12.31 Encounter for screening mammogram for malignant neoplasm of breast (principal) | CPT/HCPCS: 77063; 77067 ==

== ENCOUNTER 2023-09-13 14:22 | Outpatient (REF) | payer OTHER, SELFPAY ==
--- NOTE | ~2023-09-13 | US_ITS ---
EXAMINATION: MM DIAGNOSTIC DIGITAL BREAST TOMOSYNTHESIS, RIGHT US BREAST LIMITED, RIGHT MAMMOGRAPHY: CLINICAL INFORMATION: Callback for follow-up of focal large parenchymal asymmetry upper outer quadrant right breast, and evaluate possible faint associated calcifications in this asymmetry. COMPARISON: Mammography: 07/29/2023 (BI-RADS 0), 07/25/2022, 07/24/2021, 01/20/2021, 06/24/2020, 05/27/2020, and 11/21/2018. Ultrasound: Right 06/24/2020. TECHNIQUE: Digital breast tomosynthesis is performed in the following views: Full-field right 3-D mediolateral view, 3-D spot compression right CC and MLO views, and 2-D spot magnification right CC and ML views. Computer-aided diagnosis was used for this study. FINDINGS: There are scattered areas of fibroglandular density (ACR BI-RADS breast composition Category b). Spot magnification views of the upper outer right breast demonstrate scattered barely perceptible parenchymal punctate calcifications without evidence of suspicious grouping or pleomorphism. These are benign. No follow-up required. Spot compression and ML views of the upper outer right breast demonstrate stable dense parenchymal focal asymmetry, unchanged from numerous prior examinations. This region was previously evaluated 06/24/2020 with mammography and ultrasound. There has been no significant change. There is no suspicious mass or focus of architectural distortion. There is a circumscribed mass measuring 1.1 x 0.9 cm in the anterior aspect of this upper outer parenchymal asymmetry. This is known to represent a septated cyst. There is an abutting 3 mm circumscribed mass anterior to this. We will evaluate this region again with ultrasound. Otherwise, tomographic imaging of the right breast demonstrates smaller oval and rounded circumscribed isodense masses consistent with fibrocystic breast parenchyma. These are largely unchanged from prior exams. ULTRASOUND: CLINICAL INFORMATION: Evaluate circumscribed mass right breast upper outer quadrant 11-12 o'clock axis measuring 1.1 x 0.9 cm. COMPARISON: 06/24/2020 right breast ultrasound. TECHNIQUE: Targeted sonographic evaluation right breast was performed using a high frequency linear transducer. Attention was focused on the 10:00 through 12:00 axis. Selected archived documentation. FINDINGS: RIGHT BREAST: There is dense fibrocystic breast parenchyma present. At the 11-12 o'clock axis, 6 cm from the nipple, there is a partially thinly septated otherwise simple cyst measuring 1.1 x 0.9 x 1.2 cm, with a smaller immediately abutting more anterior 3 mm simple cyst. These findings are stable allowing for differences in measurement technique. No suspicious features. There is no solid mass or architectural abnormality identified. US/US breast RT limited mamm only IMPRESSION: -No significant changes from prior studies in the right breast. Stable prominent fibrocystic parenchyma upper outer right breast, benign. -Stable partially septated cyst measuring up to 1.2 cm upper outer quadrant right breast nearing 12:00 axis. -No suspicious grouped calcifications identified in the right breast. Recommend this patient return to routine annual screening to include both breasts. OVERALL ASSESSMENT: Mammography: BI-RADS 2 - Benign Findings Ultrasound: BI-RADS 2 - Benign Findings RECOMMENDATION: 1 year F/U Results were provided to the patient at time of visit by the technologist. This patient's information was entered into a reminder system with a target due date for their next mammogram.
== END 2023-09-13 14:23 | disposition home or self-care (01) ==
LOC: HO.MAMMO 14:22
PROVIDERS: PCP Internal Medicine; Visit Provider Internal Medicine
DX: N64.89 Other specified disorders of breast (principal)
CPT/HCPCS: 76642; 77061; 77065

== ENCOUNTER → 2023-09-13 14:30 | Outpatient (BNV) | payer OTHER, SELFPAY | PROVIDERS: PCP Internal Medicine; Visit Provider Radiology Diagnostic Radiology | DX: N60.01 Solitary cyst of right breast (principal); N60.11 Diffuse cystic mastopathy of right breast | CPT/HCPCS: 76642; 77061; 77065 ==

== ENCOUNTER 2023-11-27 08:36 | Outpatient (AMB) | payer OTHER, SELFPAY ==
--- NOTE | 2023-11-27 08:44 | MHC.PC.OV ---
Vital Signs 11/27/23 08:54 Height 5 ft 8.5 in Weight 188 lb BMI 28.2 BP 112/76 Blood Pressure Location Rt brachial Position Sitting Pulse 76 Pulse Source Pulse Oximeter Pulse Oximetry (%) 98 Oxygen Delivery Method Room Air Intake Visit Reasons: Annual PE resched from 11/22/23 Intake Note: Pt is here today for PE. 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 Allergies amoxicillin [AMOXICILLIN] Allergy (Unknown, Verified 03/17/24 02:41) NAUSEA, nausea and vomiting Medication List - Last Reconciled 03/17/24 by Naz Martinez MD fexofenadine ([facility]) 180 mg PO DAILY hydrocortisone 2.5% topical PRN magnesium 250 mg PO DAILY Tobacco use date assessed: 11/27/23 Dental Screening Dental Screen Date: 11/27/23 Did you have a dental visit in the last 12 months?: Yes Did you have a dental problem in the last 6 months where you did not have access to dental care?: No Was dental information given to patient?: Patient has dentist HPI Annual PE resched from 11/22/23 HPI Details 46-year-old lady here today for physical exam. She is up-to-date with her screening colonoscopy, with benign findings, done by Dr. Matias last 2021. She is currently seeing Dr. Mckeon for routine Pap and pelvic exam, and is up-to-date with her mammogram. She is currently being followed for mild cystocele and uterine prolapse by her OBGYN. 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 Currently being followed by GI clinic for her IBS with constipation, maintain and high-fiber diet. Goes to Dr. Richardson for skin cancer screening. She sees an superintendent quarry for seasonal allergic rhinitis, currently on Astelin nasal spray but has stopped getting immunotherapy, was not working per patient. Goes to [facility] for her routine eye exam, has myopia. Has had 2 COVID vaccine but does not want to get the booster nor does she want to get flu shots, currently up-to-date with her Tdap.. [facility] Medical History Blood transfusion declined because patient is Zoroastrianism Vitamin D deficiency History of COVID-19 Irritable bowel syndrome with constipation Wrist fracture, left Seasonal allergies Surgical History History of surgery on wrist Social History Household Members: Spouse Housing: Apartment Patient Tobacco Use Status: Never used Tobacco e-Cigarette/Vaping Use: Never Used service: No Current occupational status: employed Gender identity: Female Cognitive needs: No Hearing needs: No Vision needs: Yes Female Reproductive History Menstrual Age of Menarche: 11 Questionnaire PHQ-9 Over the last 2 weeks, how often have you been bothered by any of the following problems? 1. Little interest or pleasure in doing things: not at all 2. Feeling down, depressed, or hopeless: not at all 3. Trouble falling or staying asleep, or sleeping too much: several days 4. Feeling tired or having little energy: several days 5. Poor appetite or overeating: not at all 6. Feeling bad about yourself - or that you are a failure or have let yourself or your family down: not at all 7. Trouble concentrating on things, such as reading the newspaper or watching television: not at all 8. Moving or speaking so slowly that other people could have noticed. Or the opposite - being so fidgety or restless that you have been moving around a lot more than usual: not at all 9. Thoughts that you would be better off or of hurting yourself in some way: not at all Total score: 2 Depression Screening Interpretation: Negative Depression Screening Done: Yes 94383 - PHQ-9 Billing: Yes Source: Developed by Drs. Patrick Moody, Abby Reyes, Gibson Peck and colleagues, with an educational deepti from [employer]. Thrive Questionnaire Date Thrive assessed: 11/27/23 I am a: Patient What is your living situation today?: I have a steady place to live Within the past 12 months, did the food you bought not last and you didn't have the money to get more?: Never true Within the past 12 months, did you worry whether your food would run out before you got money to buy more?: Never true Do you have trouble paying for medicines?: No Do you have trouble getting transportation to medical appointments?: No Do you have trouble paying your heating and electricity bill?: I choose not to answer this question Do you have trouble taking care of your child, family member or friend?: No Do you have trouble with day-to-day activities such as bathing, preparing meals, shopping, managing finances, etc.?: No Are you currently unemployed and looking for a job?: No Are you interested in more education?: No THRIVE Score: 0 AUDIT C Alcohol Use Questionnaire (AUDIT-C) 1. How often do you have a drink containing alcohol?: Never 3. How often do you have six or more drinks on one occasion?: Never Total Score: 0 GARY-7 AMB Questionnaire GARY-7 Date GARY - 7 assessed: 11/27/23 Feeling nervous, anxious, or on edge: 0 = Not at all Not being able to stop or control worryin = Not at all Worrying too much about different things: 0 = Not at all Trouble relaxin = Not at all Being so restless that it is hard to sit still: 0 = Not at all Becoming easily annoyed or irritable: 0 = Not at all Feeling afraid as if something awful might happen: 0 = Not at all Total GARY-7 score (0-4 normal; 5-9 mild; 10-14 moderate; 15-21 severe): 0 Source: Developed by Drs. Patrick Moody, Abby Reyes, Gibson Peck and colleagues, with an educational deepti from [employer]. Review of Systems Const Denies body aches, Denies fatigue and Denies headache(s) Eyes Details: Gets routine eye exam from [facility] Denies change in vision and Denies itchy eyes ENT Reports Normal hearing present and Denies headache(s) Card Denies chest pain, Denies lightheadedness, Denies palpitations and Denies dyspnea Resp Denies chest congestion, Denies cough, Denies dyspnea and Denies wheezing GI Denies abdominal pain, Denies change in bowel habits and Denies heartburn Denies urinary frequency, Denies dysuria and Denies urinary urgency Musc Reports no additional complaints Skin/Breast Denies lesions and Denies rash Neuro Reports Normal hearing present, Denies headache(s) and Denies Sensory deficit (Neuro) Psych Reports no additional complaints Endo Denies fatigue, Denies polydipsia, Denies polyuria and Denies palpitations Mohan/Lymph Denies easy bruising Aller/Immun Denies itchy eyes, Denies seasonal rhinorrhea and Denies wheezing Physical exam (Primary Care) Vital Signs: Last Vital Signs Pulse 76 11/27/23 08:54 BP 112/76 11/27/23 08:54 Pulse Ox 98 11/27/23 08:54 Oxygen Delivery Method Room Air 11/27/23 08:54 BMI result Body Mass Index 28.2 Tobacco/Smoking Status: Tobacco use Status Tobacco use date assessed 11/27/23 11/27/23 08:59 Patient Tobacco Use Status Never used Tobacco 11/27/23 08:59 e-Cigarette/Vaping Use Never Used 11/27/23 08:44 PHQ-9: PHQ-9 Score PHQ-9: Total score 2 11/27/23 09:52 Depression Screening Interpretation: Negative Thrive Assessment: Date of Thrive Assessment Date Thrive assessed 11/27/23 11/27/23 09:02 Const General: cooperative, healthy appearing, no acute distress and alert Orientation/consciousness: patient oriented x3 HENMT Head: Yes normocephalic and Yes atraumatic Ears: external ears normal, TM's normal bilaterally and EAC's normal General nose exam: Normal external nose present and No nasal discharge present Face and sinus: Yes normal facial exam, Yes sinuses nontender and Yes face symmetric Mouth: Normal oral and palatal mucosa present and moist mucous membranes Eyes Conjunctivae: conjunctivae normal Sclerae: sclerae normal Pupils: Equal, round and reactive pupils present EOM: EOMs intact bilaterally Neck Neck: Yes full ROM and Yes no lymphadenopathy Thyroid: Thyroid normal Chest Chest palpation & inspection: normal inspection of the chest Breast/axilla palpation: normal palpation of the breasts Resp Effort & Inspection: normal respiratory effort and able to speak in complete sentences Auscultation: clear to auscultation bilaterally Cardio Jugular venous distension: no JVD Rate: regular rate Rhythm: regular rhythm Heart sounds: S1 normal heart sound present and S2 normal heart sound present GI Inspection: Yes normal to inspection Palpation (GI): Soft to palpation, nontender, no guarding and no masses Auscultation: normal bowel sounds Other: Sees her own OBGYN for routine Pap and pelvic exam Back/Spine/Pelvis Back: No back tenderness Skin General skin exam: no rashes or lesions noted Neuro General: patient oriented x3, gait normal, moves all extremities, no focal motor deficits and CN's II-XI intact bilaterally Cranial nerves: Yes Equal, round and reactive pupils present and Yes Normal hearing present Cognition (Neuro): normal cognition Gait exam (Neuro): Normal gait present Motor exam (neuro): 5/5 motor strength present throughout Sensory Exam: No Sensory deficit (Neuro) Extrem General: Yes normal to inspection, Yes full ROM, Yes no pedal edema and Yes normal gait Psych Appearance: grossly normal and well kempt Mental Status: mental status grossly normal Speech and movement: Normal speech and movement present Affect: normal affect Attitude: cooperative Thought process: Normal thought process present Thought content: Normal thought content present Assessment and Plan Assessment & Plan (1) Annual visit for general adult medical examination with abnormal findings: Code(s): Z00.01 - Encounter for general adult medical examination with abnormal findings Plan: Will check appropriate labs. Recommended dental visit every 6 months and regular eye exams, at least every 2 years. Take adequate calcium in diet and vitamin-D 3 at 2000 IU per cap once a day, in addition to weight-bearing exercises to help maintain good muscle tone and weight control. Instructed to do self-breast exam, and continue to get yearly mammogram. Up-to-date with her screening colonoscopy done in 2021 benign findings. Due again in 2031. (2) Seasonal allergies: Code(s): J30.2 - Other seasonal allergic rhinitis Plan: Currently followed by [employer], on Astelin nasal spray, and takes fexofenadine 180 mg once a day as needed (3) Irritable bowel syndrome with constipation: Code(s): K58.1 - Irritable bowel syndrome with constipation Plan: Followed by GI clinic (4) Cystocele with uterine prolapse: Comment: Mild cystocele central and bilateral paravaginal defects [id number] uterine prolapse Code(s): N81.4 - Uterovaginal prolapse, unspecified Plan: Followed by her OBGYN (5) Urine incontinence: Code(s): R32 - Unspecified urinary incontinence Plan: Likely due to prolapsing pelvic organs, (6) Vitamin D deficiency: Code(s): E55.9 - Vitamin D deficiency, unspecified Plan: Will check vitamin-D level (7) Fatigue: Code(s): R53.83 - Other fatigue Plan: Ordered a comprehensive metabolic panel, TSH with free T4 and vitamin-D level (8) Blood transfusion declined because patient is Zoroastrianism: Code(s): Z53.1 - Procedure and treatment not carried out because of patient's decision for reasons of belief and group pressure Orders: Orders Lipid Panel 11/27/23 E55.9 - Vitamin D deficiency, unspecified, R53.83 - Other fatigue, Z00.01 - Encounter for general adult medical examination with abnormal findings, J30.2 - Other seasonal allergic rhinitis, R32 - Unspecified urinary incontinence, N81.4 - Uterovaginal prolapse, unspecified, K58.1 - Irritable bowel syndrome with constipation TSH reflex Free T4 11/27/23 E55.9 - Vitamin D deficiency, unspecified, R53.83 - Other fatigue, Z00.01 - Encounter for general adult medical examination with abnormal findings, J30.2 - Other seasonal allergic rhinitis, R32 - Unspecified urinary incontinence, N81.4 - Uterovaginal prolapse, unspecified, K58.1 - Irritable bowel syndrome with constipation Vitamin D 25-OH Total 11/27/23 E55.9 - Vitamin D deficiency, unspecified, R53.83 - Other fatigue, Z00.01 - Encounter for general adult medical examination with abnormal findings, J30.2 - Other seasonal allergic rhinitis, R32 - Unspecified urinary incontinence, N81.4 - Uterovaginal prolapse, unspecified, K58.1 - Irritable bowel syndrome with constipation Comprehensive [place]. Panel Fast 11/27/23 E55.9 - Vitamin D deficiency, unspecified, R53.83 - Other fatigue, Z00.01 - Encounter for general adult medical examination with abnormal findings, J30.2 - Other seasonal allergic rhinitis, R32 - Unspecified urinary incontinence, N81.4 - Uterovaginal prolapse, unspecified, K58.1 - Irritable bowel syndrome with constipation Thyroid Peroxidase Antibodies 11/27/23 E55.9 - Vitamin D deficiency, unspecified, R53.83 - Other fatigue, Z00.01 - Encounter for general adult medical examination with abnormal findings, J30.2 - Other seasonal allergic rhinitis, R32 - Unspecified urinary incontinence, N81.4 - Uterovaginal prolapse, unspecified, K58.1 - Irritable bowel syndrome with constipation Coding Level of Care Code Est Pt Prev Care 40-64y(99644) Diagnoses Annual visit for general adult medical examination with abnormal findings Z00.01 Seasonal allergies J30.2 Irritable bowel syndrome with constipation K58.1 Cystocele with uterine prolapse N81.4 Urine incontinence R32 Vitamin D deficiency E55.9 Fatigue R53.83 Blood transfusion declined because patient is Zoroastrianism Z53.1
[2023-11-27 08:54] VITALS: BP 112/76; PULSE 76; O2SAT 98; BMI 28.2
== END 2023-11-27 10:01 | disposition home or self-care (01) ==
PROVIDERS: Visit Provider Internal Medicine
DX: Z00.00 Encounter for general adult medical examination without abnormal findings (principal); J30.2 Other seasonal allergic rhinitis; K58.1 Irritable bowel syndrome with constipation; N81.4 Uterovaginal prolapse, unspecified; R32 Unspecified urinary incontinence; E55.9 Vitamin D deficiency, unspecified; R53.83 Other fatigue; Z53.1 Procedure and treatment not carried out because of patient's decision for reasons of belief and group pressure
CPT/HCPCS: 99396

== ENCOUNTER 2023-11-27 10:07 | Outpatient (REF) | payer OTHER, SELFPAY ==
[2023-11-27 14:09] LABS: Alanine Aminotransferase 13 U/L (0-31); Albumin Level 4.5 g/dL (3.5-5.0); Anion Gap 13 (12-20); Aspartate Amino Transferase 16 U/L (5-31); Bilirubin Total 0.4 mg/dL (0.0-1.0); Blood Urea Nitrogen 13 mg/dL (9-16); Calcium 9.3 mg/dL (8.4-10.2); Carbon Dioxide 25 mmol/L (22-29); Chloride 105 mmol/L (96-108); Cholesterol 233 mg/dL (<200); Estimated Glomerular Filt Rate > 60; Glucose Fasting 91 mg/dL (60-99); HDL Cholesterol 46 mg/dL (>40); LDL Cholesterol Calculated 160 mg/dL (<100); Sodium 139 mmol/L (135-145); Total Protein 7.2 g/dL (6.5-8.0); Triglycerides 135 mg/dL (<150)
[2023-11-27 14:18] LABS: TSH reflex Free T4 1.95 uIU/mL (0.32-4.0); Vitamin D 25-OH Total 29.7 ng/mL (>30)
[2023-11-27 14:33] LABS: Alkaline Phosphatase 57 U/L (39-117)
[2023-11-29 01:49] LABS: Thyroid Peroxidase Antibodies 1 IU/mL (<9)
== END 2023-11-27 10:08 | disposition home or self-care (01) ==
LOC: HO.HMGCLDS 10:07
PROVIDERS: PCP Internal Medicine; Visit Provider Internal Medicine
DX: Z00.01 Encounter for general adult medical examination with abnormal findings (principal); E55.9 Vitamin D deficiency, unspecified; R53.83 Other fatigue; J30.2 Other seasonal allergic rhinitis; R32 Unspecified urinary incontinence; N81.4 Uterovaginal prolapse, unspecified; K58.1 Irritable bowel syndrome with constipation; N18.4 Chronic kidney disease, stage 4 (severe)
CPT/HCPCS: 36415; 80053; 80061; 82306; 84443; 86376

== ENCOUNTER 2024-06-15 08:26 | Outpatient (AMB) | payer OTHER, SELFPAY ==
--- NOTE | 2024-06-15 08:46 | AM.OFFWIN_ITS ---
Intake Vital Signs 06/15/24 08:48 Weight 194 lb BP 132/80 Blood Pressure Location Lt brachial Position Sitting Pulse 86 Pulse Source Pulse Oximeter Temp 98.3 F Temp Source Oral Pulse Oximetry (%) 98 Oxygen Delivery Method Room Air Intake Visit Reasons: EP-respiratory issues Intake Note: Patient here for sinus pressure, post nasal drip which has been present on and off for a year but has worsened over the past week. Patient Tobacco Use Status: Never used Tobacco Allergies amoxicillin [AMOXICILLIN] Allergy (Unknown, Verified 06/15/24 08:49) NAUSEA, nausea and vomiting Do you need a note to return to daycare/school/sports/work: No HPI HPI Comments History of Present Illness Details History - The patient is a 48-year-old female pr esenting with sinus issues and postnasal drip exacerbated after a COVID-19 infection in January of last year. Symptoms have persisted and worsened over the past few weeks. The patient's primary complaints include chronic nasal congestion, significant postnasal drip, and recurrent nighttime coughing, disrupting sleep. No new fever, shortness of breath, or significant wheezing has been reported, but there is mention of occasional ear crackling and fluid sensation. The patient tried various knlc-sxn-wapbaof remedies with limited success. The patient has experienced pressure and discomfort in the sinus region, particularly at night. She previously used allergy medications and shots, with limited success. The physical examination revealed signs of acute otitis media, and the patient has a documented non-allergic reaction to Amoxicillin, which causes nausea. History includes episodic yeast infections following antibiotic use. Physical Exam General: Cooperative, healthy appearing, comfortable and no acute distress Orientation/consciousness: Patient oriented x3 Limitations: No limitations Head: Normal to inspection Ears: Hearing grossly normal bilaterally, external ears normal, slight trace purulent effusion right TM, left TM normal Nose: Normal external nose present, Normal nares present and No nasal discharge present Face and sinus: Normal facial exam and Yes sinuses nontender, pressure noted Mouth: Normal oral and palatal mucosa present and moist mucous membranes Throat: Yes tonsils normal, Yes uvula midline. Posterior oropharynx erythema Eyes: Appearance normal, both eyes and all related structures Neck: Normal visual inspection Respiratory: Clear to auscultation bilaterally. Normal respiratory effort, able to speak in complete sentences, no respiratory distress, not tachypneic, no tripod positioning and no use of accessory muscles Cardiovascular: Regular rate and rhythm. Normal S1 and S2 Skin: No rashes or lesions noted Neuro: Patient oriented x3 Extremities: Normal to inspection and Yes no clubbing, cyanosis or edema [facility] Medical History Blood transfusion declined because patient is Religious Vitamin D deficiency History of COVID-19 Irritable bowel syndrome with constipation Wrist fracture, left Seasonal allergies Surgical History History of surgery on wrist Social History Household Members: Spouse Housing: Apartment Patient Tobacco Use Status: Never used Tobacco e-Cigarette/Vaping Use: Never Used service: No Current occupational status: employed Gender identity: Female Cognitive needs: No Hearing needs: No Vision needs: Yes Female Reproductive History Menstrual Age of Menarche: 11 Review of Systems Const All systems reviewed & are unremarkable except as noted in HPI and below Physical Exam Vital Signs: Last Vital Signs Temp 98.3 F 06/15/24 08:48 Pulse 86 06/15/24 08:48 BP 132/80 06/15/24 08:48 Pulse Ox 98 06/15/24 08:48 Oxygen Delivery Method Room Air 06/15/24 08:48 Assessment & Plan Assessment & Plan (1) Otitis media: Code(s): H66.90 - Otitis media, unspecified, unspecified ear Qualifiers: Otitis media type: suppurative Chronicity: acute Laterality: right Recurrence: non-recurrent Spontaneous tympanic membrane rupture: without spontaneous rupture Qualified Code(s): H66.001 - Acute suppurative otitis media without spontaneous rupture of ear drum, right ear Plan: The management plan addresses the patient's sinusitis, postnasal drip, and acute otitis media, favoring the prescription of cefuroxime to treat both the sinusitis and ear infection. Technique correction for nasal spray administration using Flonase is encouraged for improved efficacy. The patient is advised on the preventive measure of using a neti pot before the application of nasal steroids. Additionally, due to the patient's history of non-allergic nausea with Amoxicillin, cefuroxime is chosen as an antibiotic alternative. With the potential risk of yeast infections from antibiotics, a prescription for fluconazole is held ready for use if necessary. It is recommended to consider alternate daily allergy medications through brand variation strategies as previously suggested by an supervisor broadloom to optimize symptom management and avoid medication fatigue. The patient is provided comprehensive advice to monitor symptoms and return if they worsen or fail to improve. Patient was informed and verbally consented to the use of an ambient scribe for clinic note documentation during this visit (2) Sinusitis: Code(s): J32.9 - Chronic sinusitis, unspecified Qualifiers: Sinusitis location: frontal Chronicity: acute Recurrence: non- recurrent Qualified Code(s): J01.10 - Acute frontal sinusitis, unspecified Plan: as above Medications: New cefuroxime axetil 500 mg PO Q12H 10 tabs 0RF fluconazole may repeat second dose 72 hrs after first dose if symptoms persist 150 mg PO Q3D 2 tabs 0RF Coding Level of Care Code Est Pt Level 4 (64071) Diagnoses Non-recurrent acute suppurative otitis media of right ear without spontaneous rupture of tympanic membrane H66.001 Otitis media type: suppurative Chronicity: acute Laterality: right Recurrence: non-recurrent Spontaneous tympanic membrane rupture: without spontaneous rupture Acute non-recurrent frontal sinusitis J01.10 Sinusitis location: frontal Chronicity: acute Recurrence: non-recurrent
[2024-06-15 08:48] VITALS: BP 132/80; PULSE 86; TEMP 36.8; O2SAT 98
== END 2024-06-15 09:22 | disposition home or self-care (01) ==
PROVIDERS: PCP Internal Medicine; Visit Provider Physician Assistant
DX: H66.001 Acute suppurative otitis media without spontaneous rupture of ear drum, right ear (principal); J01.10 Acute frontal sinusitis, unspecified

== ENCOUNTER 2024-07-29 08:03 | Outpatient (AMB) | payer OTHER, SELFPAY ==
--- NOTE | 2024-07-29 09:09 | AM.OFFWIN_ITS ---
Intake Vital Signs 07/29/24 09:11 Weight 192 lb BP 122/78 Blood Pressure Location Rt brachial Position Sitting Pulse 127 H Pulse Source Pulse Oximeter Temp 98.9 F Temp Source Oral Pulse Oximetry (%) 94 Oxygen Delivery Method Room Air Intake Visit Reasons: EP ? sinus infection, chills, chest congestion Intake Note: Patient here for cough, post nasal drip, chest pain and chills that started a couple of days ago. Patient Tobacco Use Status: Never used Tobacco Allergies amoxicillin [AMOXICILLIN] Allergy (Unknown, Verified 07/29/24 09:12) NAUSEA, nausea and vomiting Do you need a note to return to daycare/school/sports/work: No HPI HPI Comments History of Present Illness Details She presents to office with cold symptoms Last covid infection was 01/2024 and has had chronic post nasal drip for it Occasional use of OTC cough medicine States few months ago started with bad sinus pressure and pain Has had continual symptoms in sinuses and chest She was seen end of May 2024 and given cephalosporin for ear infection Pt said no resolution States + post nasal drip +sinus pressure +ear fullness +cough; with some phlegm +body aches and fatigue Last night took nyquil and dayuil without relief PFSH Medical History Blood transfusion declined because patient is Mormonism Vitamin D deficiency History of COVID-19 Irritable bowel syndrome with constipation Wrist fracture, left Seasonal allergies Surgical History History of surgery on wrist Social History Household Members: Spouse Housing: Apartment Patient Tobacco Use Status: Never used Tobacco e-Cigarette/Vaping Use: Never Used service: No Current occupational status: employed Gender identity: Female Cognitive needs: No Hearing needs: No Vision needs: Yes Female Reproductive History Menstrual Age of Menarche: 11 Review of Systems Const Reports body aches, Reports chills, Reports fatigue, Reports fever(s) and Reports headache(s) ENT Denies otalgia (fullness), Reports headache(s), Reports nasal congestion, Reports post nasal drip, Reports sinus pressure and Denies throat swelling Card Denies chest pain, Denies syncope and Denies dyspnea on exertion Resp Reports change in phlegm color, Reports chest congestion, Reports cough, Denies hemoptysis and Denies dyspnea on exertion GI Denies abdominal pain Musc Reports myalgias Neuro Denies syncope and Reports headache(s) Endo Reports fatigue Aller/Immun Denies throat swelling Physical Exam Vital Signs: Last Vital Signs Temp 98.9 F 07/29/24 09:11 Pulse 127 H 07/29/24 09:11 BP 122/78 07/29/24 09:11 Pulse Ox 94 07/29/24 09:11 Oxygen Delivery Method Room Air 07/29/24 09:11 General: Non-toxic, NAD. Speaking full sentences. Skin: Warm dry throughout Eye: EOMI HENT: Airway patent. Uvula midline. No pharyngeal erythema or edema. 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 + sinus tenderness to palpation with rhinorrhea Bilateral canals clear. + fluid bilaterally but TM non-erythematous, non- bulging. No TM perforation or hemotympanum noted. Respiratory: Slight decreased L base but otherwise CTA bilaterally. No wheezes, rales or rhonchi Cardiac: +tachycardic. No murmur Neurology: Alert. No aphasia or facial droop. Gait without abnormality Psych: Good mood and affect Assessment & Plan Assessment & Plan (1) Cough: Code(s): R05.9 - Cough, unspecified Qualifiers: Cough type: acute Qualified Code(s): R05.1 - Acute cough Plan: Patient seen and evaluated. Pt sounds to have a bacterial sinus infection x >1 month and new onset flu like symptoms CHest xray ordered to r/o PNA: negative infiltrate Flu/RSV/covid swab ordered and sent Rechecked vitals; O2 was 99%, temp 99.2 degrees and HR still 120. No hx of cancer, recent travel, leg swelling, calf pain, estrogen use, hx of DVT. On exam lags equal and symmetrical without ttp. We discussed HR and most likely response to fever increasing. She will control fever at home with tylenol/motrin and take benzonate and doxy with food Discussed er s/s that warrant evaluation and patient gave verbal understanding and had no additional questions or concerns at time of discharge All questions answered Orders: Orders SARS-CoV2/FLU/RSV Today R05.9 - Cough, unspecified XR chest 2V Today R05.9 - Cough, unspecified Coding Level of Care Code Est Pt Level 3 (61365) Diagnoses Acute cough R05.1 Cough type: acute
[2024-07-29 09:11] VITALS: BP 122/78; PULSE 127; TEMP 37.2; O2SAT 94
== END 2024-07-29 09:59 | disposition home or self-care (01) ==
PROVIDERS: PCP Internal Medicine; Visit Provider Physician Assistant
DX: R05.1 Acute cough (principal)

== ENCOUNTER 2024-07-29 08:03 | Outpatient (REF) | payer OTHER, SELFPAY ==
--- NOTE | ~2024-07-29 | XR_ITS ---
EXAMINATION: XR CHEST 2 VIEWS HISTORY: R05.9 - Cough, unspecified COMPARISON: Comparison is made with the prior examination dated 07/05/2021. FINDINGS: PA and lateral views of the chest are submitted. The lungs are expanded and clear. There is no pleural effusion, pneumothorax, or pulmonary vascular congestion. The heart is normal in size. The bones are intact. XR/XR chest 2V IMPRESSION: No acute cardiopulmonary abnormality. Electronically signed by: Patrick Tai MD 07/29/2024 09:39 AM TINO
[2024-07-29 16:13] LABS: Influenza A PCR POSITIVE (Negative); Influenza B PCR NEGATIVE (Negative); Resp Syncy Virus RNA Qual PCR NEGATIVE (Negative); SARS COV2 PCR INHOUSE NEGATIVE (Negative)
== END 2024-07-29 08:04 | disposition home or self-care (01) ==
LOC: HO.HMGCX 08:03
PROVIDERS: PCP Internal Medicine; Visit Provider Physician Assistant
DX: R05.1 Acute cough (principal)
CPT/HCPCS: 0241U; 71046; 99212

== ENCOUNTER → 2024-07-29 09:30 | Outpatient (BNV) | payer OTHER, SELFPAY | PROVIDERS: PCP Internal Medicine; Visit Provider Radiology Diagnostic Radiology | DX: R05.9 Cough, unspecified (principal) | CPT/HCPCS: 71046 ==

== ENCOUNTER 2024-08-07 08:43 | Outpatient (REF) | payer OTHER, SELFPAY | END 2024-08-07 08:44 | disposition home or self-care (01) | LOC: HO.MAMMO 08:43 | PROVIDERS: PCP Internal Medicine; Visit Provider Internal Medicine | DX: Z12.31 Encounter for screening mammogram for malignant neoplasm of breast (principal) | CPT/HCPCS: 77063; 77067 ==

== ENCOUNTER → 2024-08-07 08:45 | Outpatient (BNV) | payer OTHER, SELFPAY | PROVIDERS: PCP Internal Medicine; Visit Provider Internal Medicine | DX: Z12.31 Encounter for screening mammogram for malignant neoplasm of breast (principal) | CPT/HCPCS: 77063; 77067 ==

== ENCOUNTER 2024-12-21 07:54 | Outpatient (REF) | payer OTHER, SELFPAY ==
[2024-12-21 12:33] LABS: Alanine Aminotransferase 20 U/L (0-31); Aspartate Amino Transferase 22 U/L (5-31); Cholesterol 204 mg/dL (<200); HDL Cholesterol 36 mg/dL (>40); Triglycerides 127 mg/dL (<150)
== END 2024-12-21 07:55 | disposition home or self-care (01) ==
LOC: HO.HMGCLDS 07:54
PROVIDERS: PCP Internal Medicine; Visit Provider Internal Medicine
DX: E55.9 Vitamin D deficiency, unspecified (principal); K58.1 Irritable bowel syndrome with constipation; Z53.20 Procedure and treatment not carried out because of patient's decision for unspecified reasons; Z13.1 Encounter for screening for diabetes mellitus
CPT/HCPCS: 36415; 80061; 82306; 82947; 84450; 84460

== ENCOUNTER 2024-12-23 12:19 | Outpatient (AMB) | payer OTHER, SELFPAY ==
--- NOTE | 2024-12-23 12:34 | MHC.PC.OV ---
Vital Signs 12/23/24 12:41 Height 5 ft 8.5 in Weight 190 lb BMI 28.5 BP 104/82 Blood Pressure Location Lt brachial Position Sitting Respiration 16 Pulse 82 Pulse Source Pulse Oximeter Temp 97.8 F Temp Source Oral Pulse Oximetry (%) 97 Oxygen Delivery Method Room Air Intake Visit Reasons: Annual PE resched from 11/22/23 Intake Note: Pt is here today for her PE: last mammogram 08/07/24, papsmear 06/26/22, colonscopy 03/19/22 Is last menstrual period known: Yes Last menstrual period: 12/03/24 Allergies amoxicillin (AMOXICILLIN) Allergy (Unknown, Verified 12/27/24 22:15) NAUSEA, nausea and vomiting Medication List - Last Reconciled 12/27/24 by Naz Martinez MD fexofenadine ([facility]) 180 mg PO DAILY hydrocortisone 2.5% topical PRN magnesium 250 mg PO DAILY Tobacco use date assessed: 12/23/24 Dental Screening Dental Screen Date: 12/23/24 Did you have a dental visit in the last 12 months?: Yes Did you have a dental problem in the last 6 months where you did not have access to dental care?: Yes Was dental information given to patient?: Patient has dentist HPI Annual PE resched from 11/22/23 HPI Details 49-year-old lady with history of seasonal allergies, here today for her physical exam. She is up-to-date with her breast cancer screening, with last mammogram done 08/07/24, and is up-to-date with her cervical cancer screening with last papsmear done 06/26/22. She is up-to-date colon cancer screening, with last colonscopy 03/19/[address] Matias, with a hyperplastic polyp removed. Repeat due again in 2031 [facility] Medical History (Updated 12/27/24 @ 22:24 by Naz Martinez MD) Dyslipidemia Perimenopause Fatigue Blood transfusion declined because patient is Mandaen Vitamin D deficiency History of COVID-19 Irritable bowel syndrome with constipation Wrist fracture, left Seasonal allergies Surgical History History of surgery on wrist Social History Household Members: Spouse Housing: Apartment Patient Tobacco Use Status: Never used Tobacco e-Cigarette/Vaping Use: Never Used service: No Current occupational status: employed Gender identity: Female Cognitive needs: No Hearing needs: No Vision needs: Yes Female Reproductive History Menstrual Age of Menarche: 11 Date of last menstrual period: 12/03/24 Questionnaire PHQ-9 Over the last 2 weeks, how often have you been bothered by any of the following problems? 1. Little interest or pleasure in doing things: not at all 2. Feeling down, depressed, or hopeless: not at all 3. Trouble falling or staying asleep, or sleeping too much: not at all 4. Feeling tired or having little energy: not at all 5. Poor appetite or overeating: not at all 6. Feeling bad about yourself - or that you are a failure or have let yourself or your family down: not at all 7. Trouble concentrating on things, such as reading the newspaper or watching television: not at all 8. Moving or speaking so slowly that other people could have noticed. Or the opposite - being so fidgety or restless that you have been moving around a lot more than usual: not at all 9. Thoughts that you would be better off or of hurting yourself in some way: not at all Total score: 0 Depression Screening Interpretation: Negative Depression Screening Done: Yes 62340 - PHQ-9 Billing: Yes Source: Developed by Drs. Patrick Moody, Abby Reyes, Gibson Peck and colleagues, with an educational deepti from [employer]. Thrive Questionnaire Date Thrive assessed: 12/23/24 I am a: Patient What is your living situation today?: I have a steady place to live Within the past 12 months, did the food you bought not last and you didn't have the money to get more?: Never true Within the past 12 months, did you worry whether your food would run out before you got money to buy more?: Never true Do you have trouble paying for medicines?: No Do you have trouble getting transportation to medical appointments?: No Do you have trouble paying your heating and electricity bill?: No Do you have trouble taking care of your child, family member or friend?: No Do you have trouble with day-to-day activities such as bathing, preparing meals, shopping, managing finances, etc.?: No Are you currently unemployed and looking for a job?: No Are you interested in more education?: No Please select the resources that you would like help with: None Currently or been in a relationship where the following occur: No concerns reported THRIVE Score: 0 AUDIT C Alcohol Use Questionnaire (AUDIT-C) 1. How often do you have a drink containing alcohol?: Never 3. How often do you have six or more drinks on one occasion?: Never Total Score: 0 GARY-7 AMB Questionnaire GARY-7 Date GARY - 7 assessed: 12/23/24 Feeling nervous, anxious, or on edge: 0 = Not at all Not being able to stop or control worryin = Not at all Worrying too much about different things: 0 = Not at all Trouble relaxin = Not at all Being so restless that it is hard to sit still: 0 = Not at all Becoming easily annoyed or irritable: 0 = Not at all Feeling afraid as if something awful might happen: 0 = Not at all Total GARY-7 score (0-4 normal; 5-9 mild; 10-14 moderate; 15-21 severe): 0 Source: Developed by Drs. Patrick Moody, Abby Reyes, Gibson Peck and colleagues, with an educational deepti from [employer]. GARY-7 Assessment Billing GARY-7 Assessment Tool: GARY-7 Assessment 27314 Review of Systems Const Reports body aches, Reports chills, Reports fatigue, Reports fever(s), Denies headache(s) and Reports night sweats Eyes Details: Gets routine eye exam from [facility] Denies change in vision ENT Reports Normal hearing present, Denies dizziness, Denies otalgia (fullness), Denies headache(s), Denies nasal congestion, Denies nasal discharge, Reports post nasal drip, Reports sinus pressure and Denies throat swelling Card Denies chest pain, Denies syncope, Denies dyspnea and Denies dyspnea on exertion Resp Denies cough, Denies hemoptysis, Denies dyspnea and Denies dyspnea on exertion GI Details: Has intermittent episodes of diffuse bloating and abdominal discomfort accompanied by constipation, symptoms relieved with having a bowel movement Denies urinary frequency, Denies dysuria and Denies urinary urgency Musc Reports myalgias Skin/Breast Denies lesions and Denies rash Neuro Reports Normal hearing present, Denies dizziness, Denies syncope, Denies headache(s) and Denies Sensory deficit (Neuro) Psych Reports no additional complaints Endo Reports fatigue Mohan/Lymph Denies easy bruising Aller/Immun Denies throat swelling Physical exam (Primary Care) Vital Signs: Last Vital Signs Temp 97.8 F 12/23/24 12:41 Pulse 82 12/23/24 12:41 Resp 16 12/23/24 12:41 BP 104/82 12/23/24 12:41 Pulse Ox 97 12/23/24 12:41 Oxygen Delivery Method Room Air 12/23/24 12:41 BMI result Body Mass Index 28.5 Tobacco/Smoking Status: Tobacco use Status Tobacco use date assessed 12/23/24 12/23/24 12:39 Patient Tobacco Use Status Never used Tobacco 12/23/24 12:35 e-Cigarette/Vaping Use Never Used 12/23/24 12:35 PHQ-9: PHQ-9 Score PHQ-9: Total score 0 12/23/24 12:54 Depression Screening Interpretation: Negative Thrive Assessment: Date of Thrive Assessment Date Thrive assessed 12/23/24 12/23/24 12:45 Currently or been in a relationship where the following occur: No concerns reported Const General: cooperative, healthy appearing, no acute distress and alert Orientation/consciousness: patient oriented x3 HENMT Head: Yes normocephalic Ears: external ears normal, TM's normal bilaterally and EAC's normal General nose exam: Normal external nose present and No nasal discharge present Face and sinus: Yes normal facial exam, Yes sinuses nontender and Yes face symmetric Mouth: Normal oral and palatal mucosa present and moist mucous membranes Eyes Conjunctivae: conjunctivae normal Sclerae: sclerae normal Pupils: Equal, round and reactive pupils present EOM: EOMs intact bilaterally Neck Neck: Yes full ROM and Yes no lymphadenopathy Thyroid: Thyroid normal Chest Chest palpation & inspection: normal inspection of the chest Breast/axilla palpation: normal palpation of the breasts Resp Effort & Inspection: normal respiratory effort and able to speak in complete sentences Auscultation: clear to auscultation bilaterally Cardio Jugular venous distension: no JVD Rate: regular rate Rhythm: regular rhythm Heart sounds: S1 normal heart sound present and S2 normal heart sound present GI Inspection: Yes normal to inspection Palpation (GI): Soft to palpation, nontender, no guarding and no masses Auscultation: normal bowel sounds Other: Sees her own OBGYN for routine Pap and pelvic exam Back/Spine/Pelvis Back: No back tenderness Skin General skin exam: no rashes or lesions noted Neuro General: patient oriented x3, gait normal, moves all extremities, no focal motor deficits and CN's II-XI intact bilaterally Cranial nerves: Yes Equal, round and reactive pupils present and Yes Normal hearing present Cognition (Neuro): normal cognition Gait exam (Neuro): Normal gait present Motor exam (neuro): 5/5 motor strength present throughout Sensory Exam: No Sensory deficit (Neuro) Extrem General: Yes normal to inspection, Yes full ROM, Yes no pedal edema and Yes normal gait Psych Appearance: grossly normal and well kempt Mental Status: mental status grossly normal Speech and movement: Normal speech and movement present Affect: normal affect Attitude: cooperative Thought process: Normal thought process present Thought content: Normal thought content present Results Reviewed Results Reviewed: Name: Maya Hathaway Age/Sex: 49/F : 1975 Unit#: [id number] Attend Dr: Naz Martinez MD Re12/21/24 Status: DEP REF Location: [facility] Disch: SPEC : [id number] AALIYAH: 12/21/24 STATUS: COMP REQ : [id number] RECD: 12/21/[address]: Naz Martinez MD COMP: 12/21/24 ENTERED: 12/21/[address] [facility] [address]: ORDERED: Glu Fasting, AST, ALT, Lipid Panel, Vitamin D 25-OH Test Result Flag Reference FBS 94 60-99 mg/dL AST (GOT) 22 5-31 U/L ALT (GPT) 20 0-31 U/L Triglyceride 127 <150 mg/dL Desirable Triglyceride: less than 150 mg/dL Borderline High Triglyceride 150-199 mg/dL High Triglyceride: 200-499 mg/dL Very High Triglyceride: greater than or equal to 5OO mg/dL Cholesterol 204 H <200 mg/dL Desirable Cholesterol: less than 200 mg/dL Borderline High Cholesterol: 200-239 mg/dL High Cholesterol: greater than 239 mg/dL LDL Calculated 143 H <100 mg/dL Desirable LDL: less than 100 mg/dL Near Optimal/Above Optimal LDL: 110-129 mg/dL Borderline High LDL: 130-159 mg/dL High LDL: 160-189 mg/dL Very High LDL: greater than or equal to 190 mg/dL HDL 36 L >40 mg/dL Desirable HDL: greater than 40 mg/dL Note: This HDL assay may give artificially low results in patients with liver disease. Vitamin D 25-OH 41.3 >30 ng/mL Health Based Reference Values* < 20 ng/mL Deficient 20-30 ng/mL Insufficient > 30 ng/mL Sufficient Coding Level of Care Code Est Pt Prev Care 40-64y(82579) Diagnoses Annual visit for general adult medical examination with abnormal findings Z00. Chronic fatigue R53.82 Fatigue type: chronic, unspecified Irritable bowel syndrome with constipation K58.1 Seasonal allergies J30.2 Perimenopause N95.1 Dyslipidemia E78.5 Additional Codes PHQ-9 - 66745 - PHQ-9 Billing: Yes ([id number]) GARY-7 Assessment Billing - GARY-7 Assessment Tool: GARY-7 Assessment 57526 ([id number]) Assessment & Plan Assessment & Plan (1) Annual visit for general adult medical examination with abnormal findings: Code(s): Z00. - Encounter for general adult medical examination with abnormal findings Plan: Recent fasting lab results reviewed with patient. Recommended dental visit every 6 months and regular eye exams, at least every 2 years. Take adequate calcium in diet and vitamin-D 3 at 2000 IU per cap once a day, in addition to weight-bearing exercises to help maintain good muscle tone and weight control. Instructed to do self-breast exam, and continue with yearly mammogram patient declined getting any vaccines. Up-to-date with her colon cancer screening. Goes to Dr. Mckeon for her routine Pap and pelvic exam (2) Fatigue: Code(s): R53.83 - Other fatigue Category: Medical Qualifiers: Fatigue type: chronic, unspecified Qualified Code(s): R53.82 - Chronic fatigue, unspecified Plan: Will check a CBC, TSH with reflex free T4, prolactin level and vitamin B12 and folic acid levels. Could be perimenopausal in etiology. (3) Irritable bowel syndrome with constipation: Code(s): K58.1 - Irritable bowel syndrome with constipation Category: Medical Plan: Advised to increase dietary fiber intake. Would eating a lot of greasy, acidic and highly spiced foods. Do regular exercise. (4) Seasonal allergies: Code(s): J30.2 - Other seasonal allergic rhinitis Category: Medical Plan: Currently on fexofenadine 180 mg daily (5) Perimenopause: Code(s): N95.1 - Menopausal and female climacteric states Category: Medical Plan: Patient is still having regular periods. Checking hormone levels is not going to be helpful at this time, she has fluctuating hormone levels. Advised to get regular exercise, and yoga might help (6) Dyslipidemia: Code(s): E78.5 - Hyperlipidemia, unspecified Category: Medical Plan: Recent fasting labs showed elevated LDL cholesterol. Reinforced importance of following a low-cholesterol diet and getting regular exercise. Orders: Orders Prolactin 12/23/24 R53.83 - Other fatigue Complete Blood Count Auto Diff 12/23/24 R53.83 - Other fatigue TSH reflex Free T4 12/23/24 R53.83 - Other fatigue Vitamin B12 and Folate 12/23/24 R53.83 - Other fatigue
[2024-12-23 12:41] VITALS: BP 104/82; PULSE 82; RESP 16; TEMP 36.6; O2SAT 97; BMI 28.5
== END 2024-12-23 13:13 | disposition home or self-care (01) ==
LOC: HO.HMCC 12:20
PROVIDERS: PCP Internal Medicine; Visit Provider Internal Medicine
DX: Z00.01 Encounter for general adult medical examination with abnormal findings (principal); R53.82 Chronic fatigue, unspecified; K58.1 Irritable bowel syndrome with constipation; J30.2 Other seasonal allergic rhinitis; N95.1 Menopausal and female climacteric states; E78.5 Hyperlipidemia, unspecified

== ENCOUNTER → 2024-12-23 12:19 | Outpatient (BNVA) | payer OTHER, SELFPAY | PROVIDERS: PCP Internal Medicine; Visit Provider Internal Medicine | DX: Z00.01 Encounter for general adult medical examination with abnormal findings (principal); R53.82 Chronic fatigue, unspecified; K58.1 Irritable bowel syndrome with constipation; J30.2 Other seasonal allergic rhinitis; N95.1 Menopausal and female climacteric states; E78.5 Hyperlipidemia, unspecified | CPT/HCPCS: 96127; 99396 ==

== ENCOUNTER 2024-12-30 06:58 | Outpatient (REF) | payer OTHER, SELFPAY ==
[2024-12-30 10:19] LABS: MANUAL DIFF FLAG NO
[2024-12-30 10:31] LABS: Hematocrit 41.1 % (37.0-47.0); Hemoglobin 14.7 g/dl (12.0-16.0); Imm Gran Abs Auto 0.01 X10*3/uL (0.00-0.03); Imm Gran Pct Auto 0.2 % (0.0-0.4); Lymphocytes Absolute Auto 1.4 X10*3/uL (1.2-4.9); Mean Corpuscular HGB Conc 35.8 g/dl (31.0-35.0); Mean Corpuscular Hemoglobin 31.1 pg (27.0-33.0); Mean Corpuscular Volume 86.9 fL (80.0-98.0); NRBC Abs Auto 0.000 X10*3/uL (0.0-0.012); NRBC Pct Auto 0.0 /100WBC (0.0-0.2); Platelet Count 259 X10*3/uL (160-400); Red Blood Count 4.73 X10*6/uL (4.20-5.50); White Blood Count 4.8 X10*3/uL (4.8-10.8)
[2024-12-30 11:28] LABS: Folate 8.1 ng/mL (> or = 4.0); Vitamin B12 408 pg/mL (200-900)
== END 2024-12-30 06:59 | disposition home or self-care (01) ==
LOC: HO.HMGCLDS 06:58
PROVIDERS: PCP Internal Medicine; Visit Provider Internal Medicine
DX: R53.83 Other fatigue (principal)
CPT/HCPCS: 36415; 82607; 82746; 84146; 84443; 85025

== ENCOUNTER 2025-02-19 08:34 | Outpatient (REF) | payer OTHER, SELFPAY ==
--- NOTE | ~2025-02-19 | XR_ITS ---
EXAMINATION: XR CERVICAL SPINE CLINICAL INFORMATION: CHRONIC NECK, CERVICAL PAIN COMPARISON: None available. TECHNIQUE: 5 views of the cervical spine were obtained, inclusive of bilateral oblique views. FINDINGS: There is no scoliosis. There is mild straightening of the normal lordosis. Craniocervical junction and C1-2 articulation are intact and aligned. No fracture, compression deformity, or suspicious bone lesion. There is a 2 mm degenerative retrolisthesis C5 on C6. Alignment is otherwise anatomic. There is mild to moderate disc degeneration present at C5-6 and C6-7. Disc spaces otherwise preserved. Normal facet alignment bilaterally. No significant facet arthrosis noted. Oblique views demonstrate no evidence of bony neural foraminal narrowing. There is no prevertebral soft tissue abnormality. The lung apices are clear. XR/XR cervical spine 5V IMPRESSION: 1. No acute findings of the cervical spine. 2. Mild to moderate disc degeneration C5-6 and C6-7. Electronically signed by: Richmond Reza MD 02/19/2025 09:13 AM EDT
--- OUTSIDE RECORDS SUMMARY | 2025-02-19 09:02 | XMS_ITS | Clinical Summary ---
Author Organization [facility] Address [address] [address] Phone Care Team Providers Care Pharmacology Professor Name Role Phone aNz Martinez MD Primary Care Provider Allergies No known active allergies Medications No known medications Active Problems Problem Noted Date Diagnosed Date Perimenopausal symptoms 03/27/2024 Overview (03/27/2024): Occ missed menses , Hot flashes and night sweats have decreased on herbs (incl black cohash) from chiropractor Currently concerned about weight gain Assessment & Plan (03/27/2024 5:16 PM EDT): Noted some other non-hormonal and hormonal Rx options should the herbs not continue to be effective Other than black cohash, I have no info on :safety , she should check with chiropractor Weight gain- I do not have a perimenopause Rx that will specifically help this as part of Tx; increase intensity of exercise, make plans with about grocery strategies Social History Tobacco Use Types Packs/Day Years Used Date Smoking Tobacco: Never Passive Smoke Exposure: Never Smokeless Tobacco: Never Alcohol Use Standard Drinks/Week Comments Not Currently 0 (1 standard drink = 0.6 oz pur e alcohol) Education Answer Date Recorded Are you interested in more education? Not on aide e 03/06/2024 Are you concerned about learning? Not on file 03/06/2024 No 03/06/2024 No 03/06/2024 Digital Access Answer Date Recorded No 03/06/2024 No 03/06/2024 Reliable internet access at home? Not on file 03/06/2024 Device with a working camera? Not on file Comments No Sex and Gender Information Value Date Recorded Sex Assigned at Not on file Legal Sex Female 4:20 PM EDT Gender Identity Not on file Sexual Orientation Not on file Last Filed Vital Signs Vital Sign Reading Time Taken Comments Blood Pressure 120/80 03/27/2024 2:38 PM EDT Pulse - - Temperature - - Respiratory Rate - - Oxygen Saturation - - Inhaled Oxygen Concentration - - Weight 88.6 kg (195 lb 6.4 oz) 03/27/2024 2:38 P M EDT Height 172.7 cm (5' 8 ) 03/27/2024 2:38 PM EDT Body Mass Index 29.71 03/27/2024 2:38 PM EDT Plan of Treatment Health Maintenance Due Date Last Done Comments LIPID PANEL 1975 DEPRESSION SCREENING 1987 HEPATITIS C SCREENING 11/20/1993 HIV ONE-TIME SCREENING (18-6 5 YEARS) 11/20/1993 SCREENING FOR DIABETES 11/20/2010 MAMMOGRAM 2015 COLOGUARD 11/20/2020 COLONOSCOPY 11/20/2020 COLORECTAL CANCER SCREENING 11/20/2020 FIT TEST 11/20/2020 FOBT 11/20/2020 SIGMOIDOSCOPY 11/20/2020 VIRTUAL COLONOSCOPY 11/20/2020 COVID-19 VACCINE (3 - 2023-2 5 season) 2024 08/25/2021, 12/02/2020 PAP SMEAR 06/26/2027 06/26/2022 Adult Td,Tdap Booster 07/03/2027 07/03/2017 , 09/17/2007 SMOKING STATUS SCREENING (On ce After 26 Yrs) Completed 03/27/2024 HEPATITIS A VACCINES Aged Out No long er eligible based on patient's age to complete this topic HIB VACCINES Aged Out No longer eligi ble based on patient's age to complete this topic MENINGOCOCCAL VACCINES (ACWY) Aged Out No longer eligible based on patient's age to complete this topic MENINGOCOCCAL VACCINES (B) Aged Out N o longer eligible based on patient's age to complete this topic PNEUMOCOCCAL VACCINES (0-49 years) Aged Out No longer eligible b ased on patient's age to complete this topic Medical Devices Not on file Procedures Procedure Name Priority Date/Time Associated Diagnosis Comments PAP SMEAR FOR RESULT ENTRY ONLY Routine 06/26/2022 from Last 3 Months or Most Recently Relevant to Health Maintenance Results * PAP SMEAR FOR RESULT ENTRY ONLY (06/26/2022) Pap smear NIL neg HPV Historical Provider MD HEALTH MAINTENANCE Final Result from Last 3 Months or Most Recently Relevant to Health Maintenance [facility] [place] [employer] [facility] CONNECTORCARE [employer] NON [place] PCP [place] [employer] NON [place] PCP [place] [employer] NON NSPG PCP S[place] NON [place]SPG PCP [employer] Care Teams Pharmacology Professor Relationship Specialty Start Date End Date Naz Martinez MD [address] [place] [id number] PCP - General Internal Medicine 03/05/24 Additional Source Comments The information contained in this document represents components of the legal health record. It is not the complete legal health record.[facility]
== END 2025-02-19 08:35 | disposition home or self-care (01) ==
LOC: HO.HMGCX 08:34
PROVIDERS: PCP Internal Medicine; Visit Provider Chiropractor
DX: M54.2 Cervicalgia (principal); G89.29 Other chronic pain
CPT/HCPCS: 72050

== ENCOUNTER → 2025-02-19 08:53 | Outpatient (BNV) | payer OTHER, SELFPAY | PROVIDERS: PCP Internal Medicine; Visit Provider Radiology Diagnostic Radiology | DX: M54.2 Cervicalgia (principal) | CPT/HCPCS: 72050 ==